=== PATIENT | female | born 1970 | race Caucasian/White ===

== ENCOUNTER 2016-06-26 10:12 | Emergency (ER) | payer BC ==
[2016-06-26] MEDS ORDERED: Sodium Chloride 0.9% 10 ML Syringe FLUSH PRN (10:19)
[2016-06-26 10:21] VITALS: BP 110/81
[2016-06-26] MEDS ORDERED: Ondansetron 4 MG/2 ML SDV IVPUSH ONE (10:34)
[2016-06-26] MEDS ORDERED: Famotidine 20 MG/2 ML SDV IVPUSH ONE (10:34)
[2016-06-26] MEDS ORDERED: HYDROmorphone 0.5 MG/0.5 ML Syringe IVPUSH ONE (10:34)
[2016-06-26] MEDS ORDERED: Sodium Chloride 0.9% 500 ML IV ONE (10:34)
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
--- NOTE | 2016-06-26 12:26 | US ---
Limited abdominal ultrasound: Multiple real-time images of the right upper abdomen were obtained. Comparison: No previous abdominal ultrasound, previous CT abdomen and pelvis exam of 05/15/16 is available. Findings: Liver shows no focal parenchymal abnormality. Gallbladder shows no gallstones. No gallbladder wall thickening or biliary duct dilatation is seen. Small parapelvic cyst is noted within the right kidney. Small nonobstructing stone is noted within the lower right kidney measuring 6 mm. Medullary portions of both kidneys appears somewhat echogenic possibly due to medullary sponge kidney. Pancreas appears within normal limits. Impression: 1. Echogenic medullary portions of the kidneys most likely due to medullary sponge kidney. Right kidney shows a small parapelvic cysts as well as nonobstructing lower pole calculus. 2. No additional abnormality is identified on right upper quadrant abdominal ultrasound. Diagnostic code #2
[2016-06-26] MEDS ORDERED: Metoclopramide 10 MG/2 ML SDV IVPUSH ONE (13:45)
== END 2016-06-26 14:21 | disposition home or self-care (01) ==
LOC: JD.ED 10:12 → SUPCPDRO 10:12 → JD.ED 14:21
DX: R10.11 Right upper quadrant pain (principal); I10 Essential (primary) hypertension; K21.9 Gastro-esophageal reflux disease without esophagitis; F41.9 Anxiety disorder, unspecified; F32.9 Major depressive disorder, single episode, unspecified; E11.9 Type 2 diabetes mellitus without complications; Z88.5 Allergy status to narcotic agent; Z91.040 Latex allergy status
CPT/HCPCS: 36415; 76705; 80053; 83690; 84484; 86140; 93005; 96361; 96374; 96375; 99285; J1170; J2405; J2765; J7040; J7050

== ENCOUNTER 2016-06-30 16:36 | Emergency (ER) | payer BC ==
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
[2016-06-30] MEDS ORDERED: HYDROmorphone 0.5 MG/0.5 ML Syringe IVPUSH ONE ×2 (17:16→19:34)
[2016-06-30] MEDS ORDERED: Metoclopramide 10 MG/2 ML SDV IVPUSH ONE (17:16)
[2016-06-30] MEDS ORDERED: Dextrose 5%-0.9% NaCl 1,000 ML IV SCH (17:30)
--- NOTE | 2016-06-30 19:21 | CT ---
CT abdomen and pelvis Technique: Multiple axial sections were obtained from above the dome of diaphragm inferiorly through the pubic symphysis. Oral contrast has been given. Intravenous contrast not utilized. Delayed images were also obtained through the upper abdomen. Comparison: Previous abdominal x-ray performed earlier on the same day. Previous CT abdomen and pelvis exam of 05/15/16 is also available. Findings: Visualized lung bases shows nothing acute. Noncontrast appearance of the liver appears within normal limits. Spleen also appears within normal limits. Adrenal glands show no nodule. Vague calcifications are seen within the renal pyramids of both kidneys as well as several small nonobstructing calculi. Findings are consistent with previous ultrasound of 06/26/16 suggesting medullary sponge kidney. No ureteral dilatation is seen. Previous gastric surgery is seen. Contrast is identified within the jejunum. No stomach dilatation is seen of contrast. No bowel dilatation seen within the small bowel or within the colon. Scattered stool and air is seen within the colon which appears within normal limits. Pancreas appears within normal limits. Aorta shows no aneurysmal dilatation. No retroperitoneal adenopathy or mesenteric abnormalities are seen. No pelvic mass or adenopathy is identified. Bone window settings were reviewed which appear within normal limits for the patient's age. Multiple surgical clips are seen within the right abdomen. Etiology for the surgical clips are not appreciated on this exam. Impression: 1. Previous abdominal surgery as noted above. 2. Stomach does not appear dilated. Contrast is identified within jejunum. 3. Findings compatible with medullary sponge kidney as suggested on abdominal ultrasound of 06/26/16. 4. Nothing acute identified on CT study of the abdomen and pelvis. Diagnostic code #2
[2016-06-30] MEDS ORDERED: Ondansetron 4 MG/2 ML SDV IVPUSH ONE (19:34)
[2016-06-30 20:02] VITALS: BP 111/83
--- NOTE | 2016-07-03 07:14 | CR ---
Abdomen: Supine view of the abdomen was obtained. Comparison: No previous abdominal x-ray Bowel gas noted within colon which appears within normal limits. Calcification seen within the left pelvis compatible with phleboliths. Surgical clips seen within the right lower abdomen as well as gastric surgery. Bony structures are unremarkable. Impression: 1. Incidental findings. Diagnostic code #2
== END 2016-06-30 20:00 ==
LOC: JD.ED 16:36
DX: K31.1 Adult hypertrophic pyloric stenosis (principal); I10 Essential (primary) hypertension; K21.9 Gastro-esophageal reflux disease without esophagitis; F41.8 Other specified anxiety disorders; E11.9 Type 2 diabetes mellitus without complications; Z85.820 Personal history of malignant melanoma of skin; Z90.49 Acquired absence of other specified parts of digestive tract; Z98.890 Other specified postprocedural states; Z87.891 Personal history of nicotine dependence; Z79.899 Other long term (current) drug therapy; Z88.5 Allergy status to narcotic agent; Z91.040 Latex allergy status
CPT/HCPCS: 36415; 74000; 74176; 80053; 81001; 82009; 83690; 84703; 85025; 96361; 96374; 96375; 99285; J1170; J2405; J2765; J7042

== ENCOUNTER 2017-03-09 14:18 | Emergency (ER) | payer BC ==
[2017-03-09 14:31] VITALS: BP 146/83
[2017-03-09] MEDS ORDERED: Sodium Chloride 0.9% 10 ML Syringe FLUSH PRN (14:49)
[2017-03-09] MEDS ORDERED: HYDROmorphone 1 MG/ML Syringe IVPUSH ONE (14:51)
[2017-03-09] MEDS ORDERED: Metoclopramide 10 MG/2 ML SDV IVPUSH ONE (14:51)
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
[2017-03-09] MEDS ORDERED: Sodium Chloride 0.9% 1,000 ML IV ONE (14:54)
[2017-03-09] MEDS ORDERED: Diatrizoate Meglumine/Diatrizoate Sodium 37% 120 ML Bottle PO ONE (15:16)
--- NOTE | 2017-03-09 16:20 | CT ---
CT abdomen and pelvis Technique: Multiple axial sections were obtained from above the dome of the diaphragm inferiorly through the pubic symphysis. Intravenous contrast not utilized. Oral contrast has been given. Comparison: Previous CT abdomen and pelvis exam of 06/30/16. Small portion of the visualized lung bases are clear. Liver and spleen shows no focal parenchymal abnormality. Adrenal gland on the left side shows slight fullness which is stable from prior exam and is likely incidental. Calcifications are seen within the renal pyramids as well as small nonobstructing stone within the inferior right kidney. No hydronephrosis is seen of either kidney. No ureteral calculi are seen. Pancreas is within normal limits. Surgical clips are seen from prior cholecystectomy. Aorta shows no aneurysmal dilatation. No retroperitoneal adenopathy is seen. Multiple surgical clips are seen within the right lower abdomen. Appendix not visualized. No pelvic mass or adenopathy is seen. No free fluid or inflammatory change is seen. Bone window settings were reviewed which appear within normal limits for the patient's age. Impression: 1. Findings compatible with medullary sponge kidney. Small nonobstructing stone within the inferior right kidney. These findings are stable from prior exam. 2. Slight fullness of the left adrenal gland which is stable and felt to be incidental. 3. Other incidental findings. Nothing acute is appreciated. Diagnostic code #2
[2017-03-09] MEDS ORDERED: Ondansetron 4 MG/2 ML SDV IVPUSH ONE (16:26)
[2017-03-09] MEDS ORDERED: Ondansetron 4 MG/2 ML SDV ONE (16:28)
== END 2017-03-09 17:26 | disposition home or self-care (01) ==
LOC: JD.ED 14:18
DX: R11.2 Nausea with vomiting, unspecified (principal); I10 Essential (primary) hypertension; E11.9 Type 2 diabetes mellitus without complications; Z88.5 Allergy status to narcotic agent; Z91.040 Latex allergy status; Z79.899 Other long term (current) drug therapy
CPT/HCPCS: 36415; 74176; 80053; 81025; 83690; 85025; 96361; 96374; 96375; 99284; J1170; J2405; J2765; J7040; J7050; Q9963; 99285

== ENCOUNTER 2018-08-26 21:17 | Emergency (ER) | payer BC ==
[2018-08-26 21:31] VITALS: BP 154/105
[2018-08-26] MEDS ORDERED: Ondansetron 4 MG/2 ML SDV IVPUSH ONE (22:06)
[2018-08-26] MEDS ORDERED: Sodium Chloride 0.9% 10 ML Syringe FLUSH PRN (22:06)
[2018-08-26] MEDS ORDERED: Sodium Chloride 0.9% 1,000 ML IV SCH (22:15)
[2018-08-26] MEDS ORDERED: HYDROmorphone 0.5 MG/0.5 ML Syringe IVPUSH STA (22:18)
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
[2018-08-26] MEDS ORDERED: HYDROmorphone 0.5 MG/0.5 ML Syringe IVPUSH ONE (23:35)
[2018-08-26] MEDS ORDERED: HYDROmorphone 0.5 MG/0.5 ML Syringe ONE (23:36)
[2018-08-27] MEDS ORDERED: Nitrofurantoin Monohydrate/Macrocrystalline 100 MG Cap PO ONE (00:25)
== END 2018-08-27 00:48 | disposition home or self-care (01) ==
LOC: JD.ED 21:17
DX: N30.90 Cystitis, unspecified without hematuria (principal)
CPT/HCPCS: 36415; 80053; 81001; 85007; 85027; 86140; 87086; 96361; 96374; 96375; 96376; 99284; J1170; J2405; J7040

== ENCOUNTER 2018-08-29 10:28 | Emergency (ER) | payer BC ==
[2018-08-29 10:54] VITALS: BP 144/96
[2018-08-29] MEDS ORDERED: Sodium Chloride 0.9% 1,000 ML IV ONE (11:27)
[2018-08-29] MEDS ORDERED: Ondansetron 4 MG/2 ML SDV IVPUSH ONE (11:27)
[2018-08-29] MEDS ORDERED: Ketorolac 30 MG/ML SDV IVPUSH ONE (11:28)
--- NOTE | 2018-08-29 12:36 | CT ---
CT abdomen and pelvis Technique: Multiple axial sections were obtained from the top of the liver inferiorly through the pubic symphysis. Intravenous and oral contrast not utilized. Study has been performed as a renal stone protocol. Findings: Calcifications are seen within the renal pyramids on both sides compatible with medullary sponge kidney. Nonobstructing calculus is noted within the lower right kidney measuring 5.5 mm. No ureteral dilatation or ureteral stone is seen. Visualized lung bases show nothing acute. Noncontrast appearance of the liver shows no discrete abnormality. Spleen appears within normal limits. Previous stomach surgery is noted. Adrenal glands show no nodule. Pancreas shows no discrete abnormality. Prior cholecystectomy is noted. Aorta shows no aneurysm. No retroperitoneal adenopathy is seen. Appendix not visualized. Evidence of prior right lower quadrant abdominal surgery. No pelvic mass or adenopathy is seen. No free fluid or inflammatory change is seen. Bone window settings were reviewed which appear within normal limits for the patient's age. Impression: 1. Findings compatible with medullary sponge kidney. Nonobstructing 5.5 mm stone within the lower right kidney. No ureteral dilatation or ureteral stone is seen. 2. Other incidental findings as noted above. Nothing acute is appreciated on noncontrast CT study of the abdomen and pelvis. Diagnostic code #2
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
[2018-08-29] MEDS ORDERED: Hyoscyamine 0.125 MG Tab.SL SL ONE (13:07)
[2018-08-29] MEDS ORDERED: Magnesium Citrate Solution 296 ML Bottle PO ONE (13:16)
== END 2018-08-29 13:40 | disposition home or self-care (01) ==
LOC: JD.ED 10:28
DX: K59.00 Constipation, unspecified (principal); I10 Essential (primary) hypertension; K21.9 Gastro-esophageal reflux disease without esophagitis; F41.9 Anxiety disorder, unspecified; F32.9 Major depressive disorder, single episode, unspecified; E11.9 Type 2 diabetes mellitus without complications; Z79.899 Other long term (current) drug therapy; Z88.5 Allergy status to narcotic agent; Z91.030 Bee allergy status
CPT/HCPCS: 36415; 74176; 80053; 81001; 85025; 86140; 87086; 96361; 96374; 96375; 99284; A9270; J1885; J2405; J7040

== ENCOUNTER 2019-09-21 20:41 | Emergency (ER) | payer BC ==
[2019-09-21 21:03] VITALS: BP 133/79; PULSE 91
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
[2019-09-21] MEDS ORDERED: Ondansetron 4 MG/2 ML SDV IVPUSH ONE (21:32)
[2019-09-21] MEDS ORDERED: diphenhydrAMINE 50 MG/ML SDV IVPUSH ONE (21:32)
[2019-09-21] MEDS ORDERED: Lactated Ringers 1,000 ML IV ONE (21:32)
[2019-09-21] MEDS ORDERED: Potassium Chloride 20 MEQ Tab.ER PO ONE (22:51)
--- NOTE | 2019-09-22 06:58 | CT ---
Head CT Technique: Multiple axial sections through the brain were obtained. Intravenous contrast was not utilized. Comparison: Prior head CT study of 05/15/16. Findings: Ventricles along with basal cisterns and sulci over the convexities are within normal limits for the patient's age. No abnormal parenchymal densities are seen. No evidence of intracranial hemorrhage. No midline shift or mass-effect is seen. Bone window settings were reviewed. No acute calvarial finding is seen. Visualized mastoid sinuses and visualized paranasal sinuses are clear. Impression: 1. Nothing acute is appreciated on noncontrast head CT exam. Diagnostic code #1 This report was dictated in MDT I agree with preliminary report from [email or web address], finalized on 09/21/19, 10:23 PM Central Daylight Time
== END 2019-09-21 23:20 | disposition home or self-care (01) ==
LOC: JD.ED 20:41
DX: G43.909 Migraine, unspecified, not intractable, without status migrainosus (principal); S30.1XXA Contusion of abdominal wall, initial encounter; I10 Essential (primary) hypertension; K21.9 Gastro-esophageal reflux disease without esophagitis; E11.9 Type 2 diabetes mellitus without complications; Z88.5 Allergy status to narcotic agent; Z91.010 Allergy to peanuts; Z79.899 Other long term (current) drug therapy; X58.XXXA Exposure to other specified factors, initial encounter
CPT/HCPCS: 36415; 70450; 80053; 82962; 85025; 85610; 85730; 93005; 96361; 96374; 96375; 99284; A9270; J1200; J2405; J7120; 93010

== ENCOUNTER 2019-09-23 19:50 | Emergency (ER) | payer BC ==
[2019-09-23 20:03] VITALS: BP 148/89; PULSE 90
[2019-09-23] MEDS ORDERED: Ondansetron 4 MG/2 ML SDV IVPUSH ONE (20:41)
[2019-09-23] MEDS ORDERED: diphenhydrAMINE 50 MG/ML SDV IVPUSH ONE (20:42)
[2019-09-23] MEDS ORDERED: Sodium Chloride 0.9% 1,000 ML IV SCH (20:45)
[2019-09-23] MEDS: Sodium Chloride 0.9% 10 ML Syringe FLUSH PRN ×2 (20:54→21:49)
[2019-09-23] MEDS ORDERED: Sodium Chloride 0.9% 10 ML Syringe FLUSH PRN (21:00)
[2019-09-23] MEDS ORDERED: Iopamidol 612 MG/ML 100 ML Bottle IVPUSH ONE (21:00)
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
[2019-09-23] MEDS ORDERED: LORazepam 2 MG/ML SDV IVPUSH ONE (22:03)
--- NOTE | 2019-09-24 06:51 | CT ---
CT abdomen and pelvis Technique: Multiple axial sections were obtained from below the dome of the diaphragm inferiorly through the pubic symphysis. Intravenous contrast was utilized. Delayed images were obtained through the bladder. Comparison: Prior CT abdomen and pelvis exam of 08/29/18. Findings: Visualized lung bases show nothing acute. Visualized liver shows no focal abnormality. Spleen appears within normal limits. Surgical clips are seen from prior cholecystectomy. Prior gastric surgery is noted. Adrenal glands show no nodule. Small nonobstructing calculus is noted within the lower right kidney measuring about 4 mm. Kidneys otherwise appear within normal limits. Pancreas appears within normal limits. Aorta shows atherosclerotic change without aneurysm. No retroperitoneal adenopathy or mesenteric abnormalities are seen. Soft tissue nodule noted within the right anterolateral pelvis within the subcutaneous fat possibly due to change from subcutaneous injection. Similar but smaller finding is seen on the left side. Cyst is noted within the left ovary measuring 3.0 cm. No additional pelvic abnormality is seen. Surgical clips seen within the right lower abdomen. Appendix not visualized. Delayed images shows contrast excretion into both ureters as well as contrast within the bladder. Bone window settings were reviewed which appear within normal limits for the patient's age. No acute osseous finding is seen. Impression: 1. 3.0 cm cyst within the left ovary. 2. Small nonobstructing calculus within the lower right kidney. 3. Other findings as noted above believed to be incidental. Nothing acute is appreciated. Diagnostic code #2 This report was dictated in MDT I agree with preliminary report from [facility], finalized on 09/23/19, 10:44 PM Central Daylight Time, grade 1
== END 2019-09-23 22:56 | disposition home or self-care (01) ==
LOC: JD.ED 19:50
DX: G43.909 Migraine, unspecified, not intractable, without status migrainosus (principal); R10.30 Lower abdominal pain, unspecified; I10 Essential (primary) hypertension; K21.9 Gastro-esophageal reflux disease without esophagitis; E11.9 Type 2 diabetes mellitus without complications; F41.9 Anxiety disorder, unspecified; F32.9 Major depressive disorder, single episode, unspecified; Z88.5 Allergy status to narcotic agent; Z91.040 Latex allergy status; Z79.899 Other long term (current) drug therapy
CPT/HCPCS: 36415; 51798; 74177; 80053; 81001; 85025; 96361; 96374; 96375; 99284; J1200; J2060; J2405; J7030; Q9967; 99283

== ENCOUNTER 2019-10-23 18:53 | Emergency (ER) | payer BC ==
[2019-10-23 19:28] VITALS: BP 134/94; PULSE 101
[2019-10-23] MEDS ORDERED: Ondansetron 4 MG/2 ML SDV IVPUSH ONE (20:13)
[2019-10-23] MEDS ORDERED: Sodium Chloride 0.9% 1,000 ML IV SCH (20:15)
--- NOTE | 2019-10-23 20:15 | EDM.PDOC ---
ED HPI GENERAL MEDICAL PROBLEM - General Chief Complaint: Abdominal Pain Stated Complaint: RECENT HYSTERECTOMY BACK PAIN AND ABDOMINAL PAIN Time Seen by Provider: 10/23/19 19:37 Source of Information: Reports: Patient History Limitations: Reports: No Limitations - History of Present Illness INITIAL COMMENTS - FREE TEXT/NARRATIVE: Mrs. Mederos is a pleasant 49-year-old woman with a past medical history significant for GERD, treated with pantoprazole, and obesity, status post a laparoscopic sleeve gastrectomy that developed complications and was subsequently converted to a gastric bypass, who now presents the ED stating that she has been experiencing progressively worsening epigastric burning and bloating abdominal pain since Sunday or of last week, 07/15/2019 or 07/16/2019. She experienced nausea and vomiting on Sunday, Sunday, and Sunday, 10/19/2019 - 10/21/2019, and has had watery diarrhea since 10/19/2019. She also reports chills for the past 2 days. She denies having any urinary symptoms. She also reports that she developed bilateral back pain in early September, about 2 weeks after she underwent a complete hysterectomy on 09/18/2019. Her back pain has progressively been getting worse. She states that she has not had a medical evaluation for it. The patient states that she went to the walk-in clinic today, but was sent here. She states that no tests were performed. Here in the ED, the patient's initial BP is found to be slightly elevated at 134/94, with a tachycardia of 101 bpm, otherwise, she is afebrile, saturating 100% on room air. Other than her gastrointestinal symptoms, chills, and back pain, the patient denies recent fever, sore throat, ear pain, nasal or sinus congestion, cough, dyspnea, chest pain, palpitations, constipation, urinary symptoms, recent weight gain or weight loss, recent bloody bowel movements or black bowel movements, recent joint aches, headaches, or rashes. The patient's PCP is TIFFANY Abel. Her Bariatric Surgeon is Dr. Billy Davidson. Her Stripper Preliminary is Dr. Lizy Le. Her Neurologist is Dr. Qasim Saucedo. Abdominal Pain Score (Numeric/FACES): 8 - Related Data Allergies Allergy/AdvReac Type Severity Reaction Status Date / Time codeine Allergy Rash Verified 09/23/19 20:03 latex Allergy Rash Verified 09/23/19 20:03 Home Meds: Home Meds PARoxetine HCL [Paroxetine HCl] 40 mg PO DAILY 01/12/16 [History] Pantoprazole Sodium 40 mg PO DAILY 01/12/16 [History] FA/Lycopene/Lut/MV,Ca,Iron,Min [Centrum] 1 tab PO DAILY 06/26/16 [History] Orphenadrine [Norflex] 1 tab PO Q12H PRN #14 tab.er 10/23/19 [Rx] Sucralfate [Carafate] 1 gm PO Q6HR PRN 10/23/19 [History] buPROPion HCL [Wellbutrin Xl] 1 tab PO DAILY 10/23/19 [History] Past Medical History HEENT History: Reports: Allergic Rhinitis, 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 Wears glasses and contacts) Gastrointestinal History: Reports: GERD, Hiatal Hernia : 4 Para: 1 Neurological History: Reports: Seizure (associated with heat stroke) Psychiatric History: Reports: Anxiety, Depression Oncologic (Cancer) History: Reports: Malignant Melanoma (s/p excision) - Infectious Disease History Infectious Disease History: Reports: Influenza, Mononucleosis - Past Surgical History HEENT Surgical History: Reports: Oral Surgery (wisdom teeth extraction) GI Surgical History: Reports: Appendectomy, Bariatric Procedure (Laparoscopic sleeve gastrectomy -> complications -> gastric bypass), Cholecystectomy (2018), EGD (x 6) Female Surgical History: Reports: Section (x 1), Hysterectomy (complete, 09/18/2019) Musculoskeletal Surgical History: Reports: Arthroscopic Knee (right) Oncologic Surgical History: Reports: Other (See Below) (Malignant melanoma excised from nose, followed by artificial skin graft) Social & Family History - Family History HEENT: Reports: Macular Degeneration Respiratory: Reports: Asthma GI: Reports: PUD OBGYN: Reports: None Neurological: Reports: Vertigo Oncologic: Reports: Bladder, Breast - Tobacco Use Smoking Status *Q: Never Smoker Second Hand Smoke Exposure: No - Caffeine Use Caffeine Use: Reports: Coffee - Alcohol Use Alcohol Use History: Yes Alcohol Use Frequency: Socially - Recreational Drug Use Recreational Drug Use: No - Living Situation & Occupation Living situation: Reports: , with Spouse 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 ED EXAM, GI/ABD - Physical Exam Exam: See Below Exam Limited By: No Limitations General Appearance: Alert, WD/WN, No Apparent Distress Eyes: Bilateral: Normal Appearance, EOMI Ears: Normal External Exam, Hearing Grossly Normal Nose: Normal Inspection Throat/Mouth: Normal Inspection, Normal Lips, Normal Voice, No Airway Compromise Head: Atraumatic, Normocephalic Neck: Normal Inspection, Full Range of Motion Respiratory/Chest: No Respiratory Distress, Lungs Clear, Normal Breath Sounds, No Accessory Muscle Use Cardiovascular: Normal Peripheral Pulses, Regular Rate, Rhythm, No Edema, No Gallop, No JVD, No Murmur, No Rub GI/Abdominal Exam: Normal Bowel Sounds, Soft, No Organomegaly, No Distention, No Abnormal Bruit, No Mass, Tender (Reproducible, to the epigastrium and left upper quadrant only, no tenderness elsewhere) (Female) Exam: Deferred Rectal (Female) Exam: Deferred Back Exam: Normal Inspection, Full Range of Motion, Muscle Spasm (bilateral lumbar paraspinous muscles). No: Vertebral Tenderness Extremities: Normal Inspection, Normal Range of Motion, No Pedal Edema, Normal Capillary Refill Neurological: Alert, Oriented, Normal Cognition, No Motor/Sensory Deficits Psychiatric: Normal Affect Skin Exam: Warm, Dry, Intact, Normal Color, No Rash Course - Vital Signs Last Recorded V/S: Last Vital Signs Temp 36.7 C 10/23/19 19:23 Pulse 101 H 10/23/19 19:23 Resp 16 10/23/19 19:23 BP 134/94 H 10/23/19 19:23 Pulse Ox 100 10/23/19 19:23 - Orders/Labs/Meds Orders: Active Orders 24 hr Category Date Time Status Bladder Scan [RC] ASDIRECTED Care 10/23/19 23:21 Active Orthostatic Vital Signs [RC] STAT Care 10/23/19 20:10 Active Abdomen Pelvis w Cont [CT] Stat Exams 10/23/19 20:09 Taken Labs: Laboratory Tests 10/23/19 10/23/19 Range/Units 20:20 20:20 WBC 3.70 L (3.98-10.04) K/mm3 RBC 4.07 (3.98-5.22) M/mm3 Hgb 11.8 (11.2-15.7) gm/dl Hct 37.4 (34.1-44.9) % MCV 91.9 (79.4-94.8) fl MCH 29.0 (25.6-32.2) pg MCHC 31.6 L (32.2-35.5) g/dl RDW Std Deviation 44.4 (36.4-46.3) fL Plt Count 277 D (182-369) K/mm3 MPV 8.6 L (9.4-12.3) fl Neutrophils % (Manual) 54 (40-60) % Band Neutrophils % 1 (0-10) % Lymphocytes % (Manual) 32 (20-40) % Atypical Lymphs % 0 % Monocytes % (Manual) 12 H (2-10) % Eosinophils % (Manual) 1 (0.7-5.8) % Basophils % (Manual) 0 L (0.1-1.2) Platelet Estimate Adequate Plt Morphology Comment Normal Hypochromasia 1+ slight RBC Morph Comment Not Reportable Sodium 138 (136-145) mEq/L Potassium 3.1 L (3.5-5.1) mEq/L Chloride 103 (98-107) mEq/L Carbon Dioxide 22 (21-32) mEq/L Anion Gap 16.1 H (5-15) BUN 14 (7-18) mg/dL Creatinine 1.0 (0.55-1.02) mg/dL Est Cr Clr Drug Dosing 55.01 mL/min Estimated GFR (MDRD) 59 (>60) mL/min BUN/Creatinine Ratio 14.0 (14-18) Glucose 81 (74-106) mg/dL Calcium 8.3 L (8.5-10.1) mg/dL Magnesium 1.7 L (1.8-2.4) mg/dl Total Bilirubin 0.2 (0.2-1.0) mg/dL AST 17 (15-37) U/L ALT 16 (14-59) U/L Alkaline Phosphatase 59 (46-116) U/L Total Protein 7.1 (6.4-8.2) g/dl Albumin 3.3 L (3.4-5.0) g/dl Globulin 3.8 gm/dL Albumin/Globulin Ratio 0.9 L (1-2) Lipase 83 (73-393) U/L Meds: Medications Discontinued Medications Generic Name Dose Route Start Last Admin Trade Name Freq PRN Reason Stop Dose Admin Diatrizoate Meglum/Diatrizoate Sod 40 ml 10/23/19 20:36 10/23/19 22:35 Gastrografin 37% PO 10/23/19 20:37 40 ml ONETIME ONE Administration Famotidine 40 mg 10/23/19 23:30 10/23/19 23:36 Pepcid PO 10/23/19 23:31 40 mg ONETIME STA Administration Sodium Chloride 1,000 mls @ 150 mls/hr 10/23/19 20:15 10/23/19 20:22 Normal Saline IV 150 mls/hr ASDIRECTED ANIL Administration Iopamidol 100 ml 10/23/19 20:36 10/23/19 22:35 Isovue-300 (61%) IVPUSH 10/23/19 20:37 100 ml ONETIME ONE Administration Loperamide HCl 4 mg 10/23/19 23:21 10/23/19 23:36 Imodium PO 10/23/19 23:22 4 mg ONETIME STA Administration Metoclopramide HCl 10 mg 10/23/19 21:35 10/23/19 21:38 Reglan IVPUSH 10/23/19 21:36 10 mg ONETIME STA Administration Ondansetron HCl 4 mg 10/23/19 20:13 10/23/19 20:22 Zofran IVPUSH 10/23/19 20:14 4 mg ONETIME ONE Administration Orphenadrine Citrate 100 mg 10/23/19 23:31 10/23/19 23:36 Norflex PO 10/23/19 23:32 100 mg ONETIME STA Administration Sodium Chloride 10 ml 10/23/19 20:36 Saline Flush FLUSH ONETIME PRN Keep Vein Open - Re-Assessments/Exams Free Text/Narrative Re-Assessment/Exam: 10/23/19 20:11 As above, the patient has been experiencing progressively worsening low back pain since early September, then developed epigastric pain about 1 week ago, then nausea, vomiting, and watery diarrhea this past Sunday. On physical exam, she has some reproducible tenderness to her epigastrium into her left upper quadrant, but is nontender elsewhere, and her abdomen is soft with normoactive bowel sounds. She has reproducible tenderness to palpation without percussion of her bilateral flanks, consistent with a muscle spasm. She also complains of vision changes and dizziness, although they are chronic and already being worked up by a Neurologist. For today's purposes, I have ordered a work-up that includes blood work, a CT scan of her abdomen and pelvis, a bladder scan, and orthostatics. In the meantime, the patient will be given IV fluid and IV Zofran. 10/23/19 22:55 The patient's CBC is remarkable for a WBC count low at 3.70, with the remainder of her CBC being unremarkable. Her CMP is remarkable for a potassium mildly low at 3.1, and an anion gap slightly elevated at 16.1, but with a bicarbonate normal at 22. The remainder of her CMP is unremarkable. Her magnesium level is slightly depressed at 1.7. Her lipase is within normal limits at 83. CT of the abdomen and pelvis with oral and IV contrast is read by Linsey as: 1. Small bowel enteritis suggested involving the mid to distal jejunal loops. 2. Previous appendectomy. 3. Mild fatty liver changes. 4. Previous partial gastrectomy and gastrojejunal anastomosis. 5. 4 mm nonobstructive lower pole right renal calculus. 6. Bilateral nonspecific ovarian cysts. 7. Previous hysterectomy. 8. No free fluid in the abdomen or pelvis. 9. Lung bases and pleural spaces are clear. 10. Small hiatal hernia. 10/23/19 23:20 Notified by Shannon CULP that the patient's bladder scan showed virtually no urine. 10/23/19 23:31 Test results discussed with the patient and her (now present). As above, minor's work-up is grossly unremarkable, with the exception of the finding of jejunal enteritis, however, I doubt that jejunal enteritis would cause epigastric pain or tenderness. I suggested to the patient that it is possible that the pantoprazole that she has been taking to treat her GERD has stopped working, which is fairly common. I suggested that she switch to a different PPI, and for the next few days, until the new PPI becomes effective, that she take an uyky-xnh-khsegrx H2 kika, such as famotidine. She can take loperamide for her diarrhea, and Norflex for her back pain. I can prescribe a 7-day course. The patient seemed skeptical that GERD could cause all of her symptoms. I explained that the work-up in the emergency department is intended to rule out a medical emergency, that is, an imminent threat to life or limb, and that we do not perform diagnostic work-ups in the emergency department. I reassured her, however, that no significant abnormalities were found on minor's work-up. If her symptoms fail to improve despite my treatment rec ommendations, she may require an EGD to further evaluate. The patient expressed understanding. Departure - Departure Time of Disposition: 23:34 Disposition: Home, Self-Care 01 Condition: Good Clinical Impression: Epigastric abdominal pain of unknown etiology, Diarrhea - Discharge Information *PRESCRIPTION DRUG MONITORING PROGRAM REVIEWED*: Not Applicable *COPY OF PRESCRIPTION DRUG MONITORING REPORT IN PATIENT SUMMER: Not Applicable Prescriptions: Orphenadrine [Norflex] 1 tab PO Q12H PRN #14 tab.er PRN Reason: Muscle Spasm Instructions: Abdominal Pain, Adult, [id number], Diarrhea, Adult, [id number] Referrals: Flavia Foote PA-C [Ordering Only Provider] - Qasim Saucedo MD [Ordering Only Provider] - Lizy Le MD [Ordering Only Provider] - Billy Davidson MD [Ordering Only Provider] - Forms: ED Department Discharge Additional Instructions: You were seen in the emergency room for progressively worsening upper central abdominal burning and bloating since Sunday or of last week, along with watery diarrhea since Sunday, and nausea on Sunday, Sunday, and Sunday. Work-up in the ER included blood work, a bladder scan, and a CT scan of your abdomen and pelvis with oral and IV contrast. 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 The cause of your symptoms is not known. Jejunal enteritis would not likely cause your symptoms, however, it may be that your pantoprazole has stopped working, causing your GERD to flare up. We recommend that you switch to a different proton pump inhibitor, and take it as directed on the label. As discussed, proton pump inhibitors typically take about 3 days before they become effective. During that time, we recommend that you take an [id number]-emd-lhrfldh H2 kika, such as famotidine (Pepcid). We recommend that you take 1 tablet twice a day, and generic famotidine is just as good as the brand name Pepcid. For your diarrhea, we recommend that you take aomr-owm-gsheotj loperamide (Imodium), 1 tablet (2 mg) after each loose bowel movement, to a maximum of 8 tablets (16 mg) within a 24-hour period. Stay adequately hydrated. Gatorade or Powerade are best. We recommend that you avoid juice and milk, as they may worsen diarrhea. For your back pain, you have been started on the muscle relaxant Norflex, and a prescription for Norflex has been sent to the [place] [facility] located in the [facility] store. Take 1 tablet of Norflex every 12 hours, starting tomorrow morning, 10/24/2019, as prescribed. If this medicine works well for you, talk to your PCP, TIFFANY Abel, about getting an additional prescription. If any other problems, including worsening of your symptoms, please do not hesitate to return to the ER. Sepsis Event Note (ED) - Evaluation Sepsis Screening Result: No Definite Risk - Focused Exam Vital Signs: Vital Signs Temp Pulse Resp BP Pulse Ox 10/23/19 19:23 36.7 C 101 H 16 134/94 H 100 - My Orders Last 24 Hours: My Active Orders 10/23/19 20:09 Abdomen Pelvis w Cont [CT] Stat 10/23/19 20:10 Orthostatic Vital Signs [RC] STAT 10/23/19 23:21 Bladder Scan [RC] ASDIRECTED - Assessment/Plan Last 24 Hours: My Active Orders 10/23/19 20:09 Abdomen Pelvis w Cont [CT] Stat 10/23/19 20:10 Orthostatic Vital Signs [RC] STAT 10/23/19 23:21 Bladder Scan [RC] ASDIRECTED
[2019-10-23] MEDS ORDERED: Sodium Chloride 0.9% 10 ML Syringe FLUSH PRN (20:36)
[2019-10-23] MEDS ORDERED: Iopamidol 612 MG/ML 100 ML Bottle IVPUSH ONE (20:36)
[2019-10-23] MEDS ORDERED: Diatrizoate Meglumine/Diatrizoate Sodium 37% 120 ML Bottle PO ONE (20:36)
[2019-10-23] MEDS ORDERED: Metoclopramide 10 MG/2 ML SDV IVPUSH STA (21:35)
[2019-10-23] MEDS ORDERED: Loperamide 2 MG Cap PO STA (23:21)
[2019-10-23] MEDS ORDERED: Famotidine 20 MG Tab PO STA (23:30)
[2019-10-23] MEDS ORDERED: Orphenadrine 100 MG Tab.ER PO STA (23:31)
--- NOTE | 2019-10-24 07:49 | CT ---
CT abdomen and pelvis Technique: Multiple axial sections were obtained from above the dome of the diaphragm inferiorly through the pubic symphysis. Intravenous and oral contrast was utilized. Delayed images were obtained through the bladder. Comparison: Prior CT abdomen and pelvis exam of 03/09/17 Findings: Visualized lung bases show nothing acute. Liver contains no focal parenchymal abnormality. Contrast is noted within the esophagus compatible with gastroesophageal reflux. Prior gastric surgery is noted. Spleen appears within normal limits. Surgical clips are seen from prior cholecystectomy. Adrenal glands show no abnormality. Pancreas appears normal. Kidneys show symmetric contrast enhancement without hydronephrosis. Small cortical lesion is noted within the right kidney compatible with minimal cortical cyst. There is a small nonobstructing calculus within the lower pole of the right kidney measuring about 4-5 mm in size. Aorta shows mild atherosclerotic calcification without aneurysm. No retroperitoneal adenopathy is seen. Appendix is not visualized with surgical clips seen off the tip of the spleen presumably from prior cholecystectomy. Bowel wall thickening seen within small bowel within the pelvis compatible with mild enteritis. No pelvic mass or adenopathy is seen. Both ovaries show evidence of follicles which is felt to be within normal limits. Delayed images shows contrast within the bladder. Impression: 1. Multiple small bowel loops within the pelvis showing bowel wall thickening compatible with enteritis. 2. Other nonacute findings as described above. Diagnostic code #3 This report was dictated in MDT I agree with preliminary report from julia, finalized on 10/23/19, 11:49 PM Central Daylight Time
== END 2019-10-23 23:55 | disposition home or self-care (01) ==
LOC: JD.ED 18:53
DX: R10.13 Epigastric pain (principal); R19.7 Diarrhea, unspecified; K21.9 Gastro-esophageal reflux disease without esophagitis; F41.9 Anxiety disorder, unspecified; F32.9 Major depressive disorder, single episode, unspecified; Z88.5 Allergy status to narcotic agent; Z91.040 Latex allergy status; Z79.899 Other long term (current) drug therapy
CPT/HCPCS: 36415; 51798; 74177; 80053; 83690; 83735; 85007; 85027; 96361; 96374; 96375; 99284; A9270; J2405; J2765; J7030; Q9963; Q9967

== ENCOUNTER 2020-07-31 11:47 | Emergency (ER) | payer BC ==
[2020-07-31] MEDS ORDERED: Ketorolac 30 MG/ML SDV IM ONE (12:29)
[2020-07-31] MEDS ORDERED: Ondansetron 4 MG Tab.DIS PO ONE (12:29)
[2020-07-31] MEDS ORDERED: Dexamethasone 4 MG Tab PO ONE (12:30)
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
[2020-07-31] MEDS ORDERED: HYDROmorphone 0.5 MG/0.5 ML Syringe IM ONE (14:04)
[2020-07-31 14:57] VITALS: BP 121/75; PULSE 63
--- NOTE | 2020-08-01 11:12 | CR ---
Chest: Portable view of the chest was obtained. Comparison: Prior chest x-ray of 09/05/12. Heart size and mediastinum are normal. Minimal increased density within the left lung base is seen. Lungs otherwise are clear. Bony structures are unremarkable. Prior cholecystectomy is noted. Impression: 1. Prior cholecystectomy. 2. Slight increased density within the left lung base compatible with minimal pneumonia. Diagnostic code #3
== END 2020-07-31 14:55 | disposition home or self-care (01) ==
LOC: JD.ED 11:47
DX: U07.1 COVID-19 (principal); I10 Essential (primary) hypertension; K21.9 Gastro-esophageal reflux disease without esophagitis; Z88.5 Allergy status to narcotic agent; Z91.040 Latex allergy status
CPT/HCPCS: 36415; 71045; 80053; 85025; 86140; 96372; 99284; A9270; J1170; J1885; J8540; 99283

== ENCOUNTER 2020-08-05 13:20 | Inpatient (IN) | payer BC ==
[2020-08-05] MEDS ORDERED: Sodium Chloride 0.9% 10 ML Syringe FLUSH PRN (13:47)
--- NOTE | 2020-08-05 13:48 | EDM.PDOC ---
ED HPI GENERAL MEDICAL PROBLEM - General Chief Complaint: General Stated Complaint: [facility] Time Seen by Provider: 08/05/20 13:43 Source of Information: Reports: Patient, RN Notes Reviewed History Limitations: Reports: No Limitations - History of Present Illness INITIAL COMMENTS - FREE TEXT/NARRATIVE: Patient is a 50-year-old female who presents to the ER via [facility] for her ongoing COVID-19 symptoms. Patient was diagnosed with COVID-19 roughly 1 week ago. She was seen in this ER on 07/31/2020 by myself, had a chest x-ray some basic labs, and was given a course of oral steroids for outpatient management. Patient called the ambulance today or had her called ambulance today, as when he came back from [facility], he states that he fo und her on the couch, breathing but somewhat unresponsive. Patient is complaining today of feeling increasingly more fatigued, unable to move off the couch, she has been taking her steroid, but does not seem to be doing much else for her. She developed a rash to her upper forearms and body a day or 2 ago, and is complaining of being hot with cold flashes, she has a headache, back pain, and a sore throat. She was given 50 mg IM Benadryl by the ambulance staff. Patient does note she has a history of multiple sclerosis, where she loses her vision at times, states that she has been having issues with vision loss for the last few days, but she has a medication she takes for this and it seems to be helping. 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 Primary care provider is Flavia Foote, she notes that they did call her for guidance today, and she suggest that maybe they go to [facility] for further management. Patient states that she is not been able to keep much down for food or fluids as she has had too much nausea. She was given a course of Zofran as well for her nausea but states she has not taken anything like that today. She is not complaining of any blurred vision or double vision at this time. Patient states that the rash feels like a sunburn. 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 Headache Pain Score (Numeric/FACES): 9 Throat Pain Score (Numeric/FACES): 7 Back Pain Score (Numeric/FACES): 9 - Related Data Allergies Allergy/AdvReac Type Severity Reaction Status Date / Time codeine Allergy Rash Verified 08/05/20 13:42 latex Allergy Rash Verified 08/05/20 13:42 Home Meds: Home Meds PARoxetine HCL [Paroxetine HCl] 40 mg PO DAILY 01/12/16 [History] Pantoprazole Sodium 40 mg PO DAILY 01/12/16 [History] FA/Lycopene/Lut/MV,Ca,Iron,Min [Centrum] 1 tab PO DAILY 06/26/16 [History] Ondansetron [Zofran ODT] 4 mg PO Q8H PRN #15 tab.dis 07/31/20 [Rx] dexAMETHasone [Decadron] 6 mg PO DAILY 10 Days #10 tablet 07/31/20 [Rx] Past Medical History - Past Health History Medical/Surgical History: Denies Medical/Surgical History HEENT History: Reports: Allergic Rhinitis, Impaired Vision Other HEENT History: wears glasses and contacts Cardiovascular History: Reports: Hypertension Respiratory History: Reports: Other (See Below) Other Respiratory History: seasonal allergies Gastrointestinal History: Reports: GERD, Hiatal Hernia QUILLER HAND History: Reports: Other QUILLER HAND History: Neurological History: Reports: Seizure Other Neuro History: triggered by heat stroke, occurred 6 years ago Psychiatric History: Reports: Anxiety, Depression Endocrine/Metabolic History: Reports: Diabetes, Type II Oncologic (Cancer) History: Reports: Malignant Melanoma Dermatologic History: Reports: Melanoma - Infectious Disease History Infectious Disease History: Reports: Influenza, Mononucleosis, Novel Coronavirus (07/27/2020) - Past Surgical History HEENT Surgical History: Reports: Oral Surgery Other HEENT Surgeries/Procedures: cancer on skin of face around nose Cardiovascular Surgical History: Reports: None GI Surgical History: Reports: Appendectomy, Bariatric Procedure, Cholecystectomy, EGD Other GI Surgeries/Procedures: SLEEVE procedure Female Surgical History: Reports: Section, Hysterectomy Endocrine Surgical History: Reports: None Neurological Surgical History: Reports: None Musculoskeletal Surgical History: Reports: Arthroscopic Knee Oncologic Surgical History: Reports: Other (See Below) Dermatological Surgical History: Reports: Skin Graft Social & Family History - Family History HEENT: Reports: Macular Degeneration Respiratory: Reports: Asthma GI: Reports: PUD OBGYN: Reports: None Neurological: Reports: Vertigo Oncologic: Reports: Bladder, Breast - Tobacco Use Tobacco Use Status *Q: Never Tobacco User - Caffeine Use Caffeine Use: Reports: Coffee - Recreational Drug Use Recreational Drug Use: No - Living Situation & Occupation Living situation: Reports: , with Spouse 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 ED EXAM, GENERAL - Physical Exam Exam: See Below Exam Limited By: No Limitations General Appearance: Alert, WD/WN, No Apparent Distress (pt is somewhat dramatic) Respiratory/Chest: No Respiratory Distress, Lungs Clear, Normal Breath Sounds, No Accessory Muscle Use, Chest Non-Tender Cardiovascular: Normal Peripheral Pulses, Regular Rate, Rhythm, No Edema Peripheral Pulses: 2+: Radial (L), Radial (R) GI/Abdominal: Normal Bowel Sounds, Soft, Non-Tender, No Distention, No Mass Extremities: Normal Range of Motion, Normal Capillary Refill Neurological: Alert, Oriented, Normal Cognition, No Motor/Sensory Deficits Psychiatric: Normal Affect, Normal Mood Skin Exam: Warm, Dry, Intact, Normal Color, Rash (Erythema noted to bilateral upper arms, and onto her chest. This does have the appearance of a sunburn in nature. Patient states that the rash feels like a sunburn however she has not been in the sun.) #1 Interpretation EKG Date: 08/05/20 Time: 14:12 Rhythm: NSR Rate (Beats/Min): 76 Lerona: LAD-Left Lerona Deviation (-20 ) P-Wave: Present QRS: Normal ST-T: Normal QT: Normal EKG Interpretation Comments: No obvious ischemia or acute ST changes noted, reviewed by myself and Dr. Dickey. He did appreciate a near Q-wave in leads III and aVF, consider old inferior wall PA. Course - Vital Signs Last Recorded V/S: Last Vital Signs Temp 97.6 F 08/05/20 13:30 Pulse 87 08/05/20 13:30 Resp 18 08/05/20 13:30 BP 136/97 H 08/05/20 13:30 Pulse Ox 98 08/05/20 13:30 - Orders/Labs/Meds Orders: Active Orders 24 hr Category Date Time Status EKG Documentation Completion [RC] STAT Care 08/05/20 13:47 Active Peripheral IV Care [RC] . DIRECTED Care 08/05/20 13:48 Active REFLEX LACTIC ACID YES OR NO [CHEM] Routine Lab 08/05/20 14:13 Received Potassium Chloride [KCl in Water 10 MEQ/100 ML] 10 meq Med 08/05/20 14:30 Active Premix Bag 1 bag IV Q1H Sodium Chloride 0.9% [Saline Flush] Med 08/05/20 13:47 Active 10 ml FLUSH ASDIRECTED PRN Peripheral IV Insertion Adult [OM.PC] Routine Oth 08/05/20 13:48 Ordered Medication Orders Potassium Chloride 10 meq/ (Premix) 100 mls @ 100 mls/hr IV Q1H ANIL Stop: 08/05/20 18:29 Last Admin: 08/05/20 15:17 Dose: 100 mls/hr Documented by: JIMMIE Sodium Chloride (Sodium Chloride 0.9% 10 Ml Syringe) 10 ml FLUSH ASDIRECTED PRN PRN Reason: Keep Vein Open Last Admin: 08/05/20 15:14 Dose: 10 ml Documented by: JIMMIE Labs: Laboratory Tests 08/05/20 08/05/20 08/05/20 Range/Units 13:28 13:28 13:28 WBC 7.21 (3.98-10.04) K/mm3 RBC 5.10 (3.98-5.22) M/mm3 Hgb 13.0 D (11.2-15.7) gm/dl Hct 42.1 (34.1-44.9) % MCV 82.5 (79.4-94.8) fl MCH 25.5 L (25.6-32.2) pg MCHC 30.9 L (32.2-35.5) g/dl RDW Std Deviation 49.0 H (36.4-46.3) fL Plt Count 368 D (182-369) K/mm3 MPV 9.2 L (9.4-12.3) fl Neutrophils % (Manual) 85 H (40-60) % Band Neutrophils % 0 (0-10) % Lymphocytes % (Manual) 9 L (20-40) % Atypical Lymphs % 0 % Monocytes % (Manual) 2 (2-10) % Eosinophils % (Manual) 4 (0.7-5.8) % Basophils % (Manual) 0 L (0.1-1.2) Platelet Estimate Adequate Plt Morphology Comment Normal Polychromasia Moderate RBC Morph Comment Not Reportable PT 10.5 (9.7-12.0) SECONDS INR 0.98 APTT 22.2 (21.7-31.4) SECONDS D-Dimer, Quantitative 1.09 H (0.19-0.50) mg/L Sodium (136-145) mEq/L Potassium (3.5-5.1) mEq/L Chloride (98-107) mEq/L Carbon Dioxide (21-32) mEq/L Anion Gap (5-15) BUN (7-18) mg/dL Creatinine (0.55-1.02) mg/dL Est Cr Clr Drug Dosing mL/min Estimated GFR (MDRD) (>60) mL/min BUN/Creatinine Ratio (14-18) Glucose (74-106) mg/dL Lactic Acid (0.4-2.0) mmol/L Calcium (8.5-10.1) mg/dL Magnesium (1.8-2.4) mg/dl Ferritin (8-252) ng/ml Total Bilirubin (0.2-1.0) mg/dL AST (15-37) U/L ALT (14-59) U/L Alkaline Phosphatase (46-116) U/L Lactate Dehydrogenase (81-234) U/L Troponin I (0.00-0.056) ng/mL C-Reactive Protein <0.2 (<1.0) mg/dL Total Protein (6.4-8.2) g/dl Albumin (3.4-5.0) g/dl Globulin gm/dL Albumin/Globulin Ratio (1-2) Urine Color (Yellow) Urine Appearance (Clear) Urine pH (5.0-8.0) Ur Specific [place] (1.005-1.030) Urine Protein (Negative) Urine Glucose (UA) (Negative) Urine Ketones (Negative) Urine Occult Blood (Negative) Urine Nitrite (Negative) Urine Bilirubin (Negative) Urine Urobilinogen (0.2-1.0) Ur Leukocyte Esterase (Negative) Urine RBC (0-5) /hpf Urine WBC (0-5) /hpf Ur Squamous Epith Cells (0-5) /hpf Urine Bacteria (FEW) /hpf Urine Mucus (FEW) /hpf Ketones (0.0-0.3) mM Group A Strep (PCR) (NOT DETECT) 08/05/20 08/05/20 08/05/20 Range/Units 13:28 13:28 13:28 WBC (3.98-10.04) K/mm3 RBC (3.98-5.22) M/mm3 Hgb (11.2-15.7) gm/dl Hct (34.1-44.9) % MCV (79.4-94.8) fl MCH (25.6-32.2) pg MCHC (32.2-35.5) g/dl RDW Std Deviation (36.4-46.3) fL Plt Count (182-369) K/mm3 MPV (9.4-12.3) fl Neutrophils % (Manual) (40-60) % Band Neutrophils % (0-10) % Lymphocytes % (Manual) (20-40) % Atypical Lymphs % % Monocytes % (Manual) (2-10) % Eosinophils % (Manual) (0.7-5.8) % Basophils % (Manual) (0.1-1.2) Platelet Estimate Plt Morphology Comment Polychromasia RBC Morph Comment PT (9.7-12.0) SECONDS INR APTT (21.7-31.4) SECONDS D-Dimer, Quantitative (0.19-0.50) mg/L Sodium 143 (136-145) mEq/L Potassium 2.7 L (3.5-5.1) mEq/L Chloride 102 (98-107) mEq/L Carbon Dioxide 24 (21-32) mEq/L Anion Gap 19.7 H (5-15) BUN 14 (7-18) mg/dL Creatinine 1.0 (0.55-1.02) mg/dL Est Cr Clr Drug Dosing 54.41 mL/min Estimated GFR (MDRD) 59 (>60) mL/min BUN/Creatinine Ratio 14.0 (14-18) Glucose 78 (74-106) mg/dL Lactic Acid 6.2 H* (0.4-2.0) mmol/L Calcium 10.2 H D (8.5-10.1) mg/dL Magnesium 2.4 (1.8-2.4) mg/dl Ferritin 45 (8-252) ng/ml Total Bilirubin 0.4 (0.2-1.0) mg/dL AST 148 H (15-37) U/L ALT 40 (14-59) U/L Alkaline Phosphatase 81 (46-116) U/L Lactate Dehydrogenase 275 H (81-234) U/L Troponin I < 0.017 (0.00-0.056) ng/mL C-Reactive Protein (<1.0) mg/dL Total Protein 8.2 (6.4-8.2) g/dl Albumin 3.8 (3.4-5.0) g/dl Globulin 4.4 gm/dL Albumin/Globulin Ratio 0.9 L (1-2) Urine Color (Yellow) Urine Appearance (Clear) Urine pH (5.0-8.0) Ur Specific [place] (1.005-1.030) Urine Protein (Negative) Urine Glucose (UA) (Negative) Urine Ketones (Negative) Urine Occult Blood (Negative) Urine Nitrite (Negative) Urine Bilirubin (Negative) Urine Urobilinogen (0.2-1.0) Ur Leukocyte Esterase (Negative) Urine RBC (0-5) /hpf Urine WBC (0-5) /hpf Ur Squamous Epith Cells (0-5) /hpf Urine Bacteria (FEW) /hpf Urine Mucus (FEW) /hpf Ketones (0.0-0.3) mM Group A Strep (PCR) (NOT DETECT) 08/05/20 08/05/20 08/05/20 Range/Units 13:28 13:52 13:54 WBC (3.98-10.04) K/mm3 RBC (3.98-5.22) M/mm3 Hgb (11.2-15.7) gm/dl Hct (34.1-44.9) % MCV (79.4-94.8) fl MCH (25.6-32.2) pg MCHC (32.2-35.5) g/dl RDW Std Deviation (36.4-46.3) fL Plt Count (182-369) K/mm3 MPV (9.4-12.3) fl Neutrophils % (Manual) (40-60) % Band Neutrophils % (0-10) % Lymphocytes % (Manual) (20-40) % Atypical Lymphs % % Monocytes % (Manual) (2-10) % Eosinophils % (Manual) (0.7-5.8) % Basophils % (Manual) (0.1-1.2) Platelet Estimate Plt Morphology Comment Polychromasia RBC Morph Comment PT (9.7-12.0) SECONDS INR APTT (21.7-31.4) SECONDS D-Dimer, Quantitative (0.19-0.50) mg/L Sodium (136-145) mEq/L Potassium (3.5-5.1) mEq/L Chloride (98-107) mEq/L Carbon Dioxide (21-32) mEq/L Anion Gap (5-15) BUN (7-18) mg/dL Creatinine (0.55-1.02) mg/dL Est Cr Clr Drug Dosing mL/min Estimated GFR (MDRD) (>60) mL/min BUN/Creatinine Ratio (14-18) Glucose (74-106) mg/dL Lactic Acid (0.4-2.0) mmol/L Calcium (8.5-10.1) mg/dL Magnesium (1.8-2.4) mg/dl Ferritin (8-252) ng/ml Total Bilirubin (0.2-1.0) mg/dL AST (15-37) U/L ALT (14-59) U/L Alkaline Phosphatase (46-116) U/L Lactate Dehydrogenase (81-234) U/L Troponin I (0.00-0.056) ng/mL C-Reactive Protein (<1.0) mg/dL Total Protein (6.4-8.2) g/dl Albumin (3.4-5.0) g/dl Globulin gm/dL Albumin/Globulin Ratio (1-2) Urine Color Light yellow (Yellow) Urine Appearance Clear (Clear) Urine pH 7.0 (5.0-8.0) Ur Specific [place] 1.015 (1.005-1.030) Urine Protein Negative (Negative) Urine Glucose (UA) Negative (Negative) Urine Ketones Negative (Negative) Urine Occult Blood Negative (Negative) Urine Nitrite Negative (Negative) Urine Bilirubin Negative (Negative) Urine Urobilinogen 0.2 (0.2-1.0) Ur Leukocyte Esterase Negative (Negative) Urine RBC 0-5 (0-5) /hpf Urine WBC 0-5 (0-5) /hpf Ur Squamous Epith Cells 5-10 H (0-5) /hpf Urine Bacteria Moderate H (FEW) /hpf Urine Mucus Few (FEW) /hpf Ketones 0.23 (0.0-0.3) mM Group A Strep (PCR) Not detected (NOT DETECT) Meds: Medications Generic Name Dose Route Start Last Admin Trade Name Gilbertoq PRN Reason Stop Dose Admin Potassium Chloride 10 meq/ 100 mls @ 100 mls/hr 08/05/20 14:30 08/05/20 15:17 Premix IV 08/05/20 18:29 100 mls/hr Q1H ANIL Administration Sodium Chloride 10 ml 08/05/20 13:47 08/05/20 15:14 Sodium Chloride 0.9% 10 Ml Syringe FLUSH 10 ml ASDIRECTED PRN Administration Keep Vein Open Discontinued Medications Generic Name Dose Route Start Last Admin Trade Name Philippe PRN Reason Stop Dose Admin Fentanyl 50 mcg 08/05/20 15:34 Fentanyl 100 Mcg/2 Ml Sdv IVPUSH 08/05/20 15:35 ONETIME ONE Hydromorphone HCl 1 mg 08/05/20 14:24 08/05/20 15:12 Hydromorphone 1 Mg/Ml Syringe IVPUSH 08/05/20 14:25 1 mg ONETIME ONE Administration Sodium Chloride 1,000 mls @ 999 mls/hr 08/05/20 14:13 08/05/20 15:14 Normal Saline IV 08/05/20 15:13 999 mls/hr ONETIME ONE Administration Sodium Chloride 1,000 mls @ 999 mls/hr 08/05/20 14:36 Normal Saline IV 08/05/20 15:36 ONETIME ONE Ketorolac Tromethamine 30 mg 08/05/20 15:30 Ketorolac 30 Mg/Ml Sdv IVPUSH 08/05/20 15:31 ONETIME ONE Ondansetron HCl 4 mg 08/05/20 14:24 08/05/20 15:10 Ondansetron 4 Mg/2 Ml Sdv IVPUSH 08/05/20 14:25 4 mg ONETIME ONE Administration - Re-Assessments/Exams Free Text/Narrative Re-Assessment/Exam: 08/05/20 14:29 Patient presents to the ER for ongoing COVID-19 symptoms, labs were taken at time of triage, as it was fairly busy in the ER I did have a slight delay in getting to the patient initially. Her labs have somewhat resulted, CBC is essentially unremarkable, potassium is mildly low at 2.7, her anion gap is elevated at 19.7, lactic acid is elevated at 6.2, LDH at 275, troponin undetectably low, CRP is undetectably low. EKG demonstrates no acute ST change or abnormalities reviewed by myself or Dr. Dickey. Still awaiting some of the labs, we will go ahead and give the patient some IV fluids, 1 mg IV Dilaudid, some Zofran for nausea management and we will likely do IV potassium along with oral potassium if she can tolerate oral potassium. 08/05/20 14:51 Patient's strep screen was negative, this was performed due to her ongoing sore throat and developing rash. 08/05/20 15:44 Case was discussed with Dr. Calles, and he is gracious enough to accept the patient for admission at this time. Sepsis was not identified at this time. The patient's lactic acid is likely elevated d/t her not eating/drinking much at all for the past few days. Departure - Departure Time of Disposition: 15:45 Disposition: Admitted As Inpatient 68 Condition: Good Clinical Impression: COVID-19, Hypokalemia, Elevated lactic acid level - Discharge Information *PRESCRIPTION DRUG MONITORING PROGRAM REVIEWED*: No *COPY OF PRESCRIPTION DRUG MONITORING REPORT IN PATIENT SUMMER: No Forms: ED Department Discharge Sepsis Event Note (ED) - Evaluation Sepsis Screening Result: No Definite Risk - Focused Exam Vital Signs: Vital Signs Temp Pulse Resp BP Pulse Ox 08/05/20 13:30 97.6 F 87 18 136/97 H 98 - My Orders Last 24 Hours: My Active Orders 08/05/20 13:47 EKG Documentation Completion [RC] STAT Sodium Chloride 0.9% [Saline Flush] 10 ml FLUSH ASDIRECTED PRN 08/05/20 13:48 Peripheral IV Care [RC] . DIRECTED Peripheral IV Insertion Adult [OM.PC] Routine 08/05/20 14:13 REFLEX LACTIC ACID YES OR NO [CHEM] Routine 08/05/20 14:30 Potassium Chloride [KCl in Water 10 MEQ/100 ML] 10 meq Premix Bag 1 bag IV Q1H - Assessment/Plan Last 24 Hours: My Active Orders 08/05/20 13:47 EKG Documentation Completion [RC] STAT Sodium Chloride 0.9% [Saline Flush] 10 ml FLUSH ASDIRECTED PRN 08/05/20 13:48 Peripheral IV Care [RC] . DIRECTED Peripheral IV Insertion Adult [OM.PC] Routine 08/05/20 14:13 REFLEX LACTIC ACID YES OR NO [CHEM] Routine 08/05/20 14:30 Potassium Chloride [KCl in Water 10 MEQ/100 ML] 10 meq Premix Bag 1 bag IV Q1H
[2020-08-05] MEDS ORDERED: Sodium Chloride 0.9% 1,000 ML IV ONE ×2 (14:13→14:36)
[2020-08-05] MEDS ORDERED: HYDROmorphone 1 MG/ML Syringe IVPUSH ONE (14:24)
[2020-08-05] MEDS ORDERED: Ondansetron 4 MG/2 ML SDV IVPUSH ONE (14:24)
--- NOTE | 2020-08-05 14:30 | CR ---
Chest: Portable view of the chest was obtained. Comparison: Prior chest x-ray of 07/31/20. Heart size and mediastinum are normal. Lungs are clear with no acute parenchymal change. Bony structure shows nothing acute. Impression: 1. Nothing acute is seen on portable chest x-ray. Diagnostic code #1
[2020-08-05] MEDS: Potassium Chloride 10 MEQ in Premix Bag 1 BAG IV SCH ×4 (15:17→21:48)
[2020-08-05] MEDS ORDERED: Ketorolac 30 MG/ML SDV IVPUSH ONE (15:30)
[2020-08-05] MEDS ORDERED: fentaNYL 100 MCG/2 ML SDV IVPUSH ONE (15:34)
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
[2020-08-05] MEDS ORDERED: Docusate Sodium 100 MG Cap PO PRN (16:43)
[2020-08-05] MEDS ORDERED: HYDROmorphone 0.5 MG/0.5 ML Syringe IVPUSH PRN (16:43)
[2020-08-05] MEDS ORDERED: Temazepam 15 MG Cap PO PRN (16:43)
[2020-08-05] MEDS ORDERED: Ondansetron 4 MG/2 ML SDV IV PRN (16:43)
[2020-08-05] MEDS ORDERED: Sodium Chloride 0.9% 1,000 ML IV SCH (16:45)
[2020-08-05] MEDS: Enoxaparin 40 MG/0.4 ML Syringe SUBCUT SCH (17:56)
[2020-08-05] MEDS: cefTRIAXone 2 GM in Sodium Chloride 0.9% 100 ML IV SCH (17:56)
[2020-08-05] MEDS: Ondansetron 4 MG Tab.DIS PO PRN (18:48)
[2020-08-05] MEDS: Topiramate 25 MG Tab PO SCH (20:41)
[2020-08-05] MEDS: diphenhydrAMINE 25 MG Cap PO PRN (20:41)
[2020-08-06] MEDS: diphenhydrAMINE 25 MG Cap PO PRN ×3 (01:33→17:10)
[2020-08-06] MEDS: oxyCODONE 5 MG Tab PO PRN ×4 (01:33→22:03)
--- NOTE | 2020-08-06 07:54 | PCM.PN ---
- General Info Date of Service: 08/06/20 Admission Dx/Problem (Free Text): Admission Diagnosis/Problem Admission Diagnosis/Problem Hypokalemia Subjective Update: Patient is a 50-year-old lady who was admitted to acute hospitalization for aftereffects of COVID-19. The patient today says that she is doing better. She still has a headache. She has been tolerating her diet. She is currently on room air. The patient also has been complaining of continuing burning rash. Benadryl seems to be helping her with this. Functional Status: Reports: Pain Controlled, Tolerating Diet - Review of Systems General: Reports: Fatigue HEENT: Reports: No Symptoms Pulmonary: Reports: No Symptoms Cardiovascular: Reports: No Symptoms Gastrointestinal: Reports: No Symptoms Genitourinary: Reports: No Symptoms Musculoskeletal: Reports: No Symptoms Skin: Reports: Rash Neurological: Reports: No Symptoms Psychiatric: Reports: No Symptoms - Patient Data Vitals - Most Recent: Last Vital Signs Temp 36.7 C 08/06/20 05:47 Pulse 67 08/06/20 05:47 Resp 18 08/06/20 05:47 BP 134/100 H 08/06/20 05:47 Pulse Ox 96 08/06/20 05:47 Weight - Most Recent: 81.647 kg I&O - Last 24 Hours: Intake & Output 08/05/20 08/06/20 08/06/20 22:59 06:59 14:59 Intake Total 3265 Output Total 1800 Balance 1465 Lab Results Last 24 Hours: Laboratory Results - last 24 hr 08/05/20 08/05/20 08/05/20 Range/Units 13:28 13:28 13:28 WBC 7.21 (3.98-10.04) K/mm3 RBC 5.10 (3.98-5.22) M/mm3 Hgb 13.0 D (11.2-15.7) gm/dl Hct 42.1 (34.1-44.9) % MCV 82.5 (79.4-94.8) fl MCH 25.5 L (25.6-32.2) pg MCHC 30.9 L (32.2-35.5) g/dl RDW Std Deviation 49.0 H (36.4-46.3) fL Plt Count 368 D (182-369) K/mm3 MPV 9.2 L (9.4-12.3) fl Neutrophils % (Manual) 85 H (40-60) % Band Neutrophils % 0 (0-10) % Lymphocytes % (Manual) 9 L (20-40) % Atypical Lymphs % 0 % Monocytes % (Manual) 2 (2-10) % Eosinophils % (Manual) 4 (0.7-5.8) % Basophils % (Manual) 0 L (0.1-1.2) Platelet Estimate Adequate Plt Morphology Comment Normal Polychromasia Moderate RBC Morph Comment Not Reportable PT 10.5 (9.7-12.0) SECONDS INR 0.98 APTT 22.2 (21.7-31.4) SECONDS D-Dimer, Quantitative 1.09 H (0.19-0.50) mg/L Sodium (136-145) mEq/L Potassium (3.5-5.1) mEq/L Chloride (98-107) mEq/L Carbon Dioxide (21-32) mEq/L Anion Gap (5-15) BUN (7-18) mg/dL Creatinine (0.55-1.02) mg/dL Est Cr Clr Drug Dosing mL/min Estimated GFR (MDRD) (>60) mL/min BUN/Creatinine Ratio (14-18) Glucose (74-106) mg/dL Lactic Acid (0.4-2.0) mmol/L Calcium (8.5-10.1) mg/dL Magnesium (1.8-2.4) mg/dl Ferritin (8-252) ng/ml Total Bilirubin (0.2-1.0) mg/dL AST (15-37) U/L ALT (14-59) U/L Alkaline Phosphatase (46-116) U/L Lactate Dehydrogenase (81-234) U/L Troponin I (0.00-0.056) ng/mL C-Reactive Protein <0.2 (<1.0) mg/dL Total Protein (6.4-8.2) g/dl Albumin (3.4-5.0) g/dl Globulin gm/dL Albumin/Globulin Ratio (1-2) Urine Color (Yellow) Urine Appearance (Clear) Urine pH (5.0-8.0) Ur Specific [place] (1.005-1.030) Urine Protein (Negative) Urine Glucose (UA) (Negative) Urine Ketones (Negative) Urine Occult Blood (Negative) Urine Nitrite (Negative) Urine Bilirubin (Negative) Urine Urobilinogen (0.2-1.0) Ur Leukocyte Esterase (Negative) Urine RBC (0-5) /hpf Urine WBC (0-5) /hpf Ur Squamous Epith Cells (0-5) /hpf Urine Bacteria (FEW) /hpf Urine Mucus (FEW) /hpf Ketones (0.0-0.3) mM Group A Strep (PCR) (NOT DETECT) 08/05/20 08/05/20 08/05/20 Range/Units 13:28 13:28 13:28 WBC (3.98-10.04) K/mm3 RBC (3.98-5.22) M/mm3 Hgb (11.2-15.7) gm/dl Hct (34.1-44.9) % MCV (79.4-94.8) fl MCH (25.6-32.2) pg MCHC (32.2-35.5) g/dl RDW Std Deviation (36.4-46.3) fL Plt Count (182-369) K/mm3 MPV (9.4-12.3) fl Neutrophils % (Manual) (40-60) % Band Neutrophils % (0-10) % Lymphocytes % (Manual) (20-40) % Atypical Lymphs % % Monocytes % (Manual) (2-10) % Eosinophils % (Manual) (0.7-5.8) % Basophils % (Manual) (0.1-1.2) Platelet Estimate Plt Morphology Comment Polychromasia RBC Morph Comment PT (9.7-12.0) SECONDS INR APTT (21.7-31.4) SECONDS D-Dimer, Quantitative (0.19-0.50) mg/L Sodium 143 (136-145) mEq/L Potassium 2.7 L (3.5-5.1) mEq/L Chloride 102 (98-107) mEq/L Carbon Dioxide 24 (21-32) mEq/L Anion Gap 19.7 H (5-15) BUN 14 (7-18) mg/dL Creatinine 1.0 (0.55-1.02) mg/dL Est Cr Clr Drug Dosing 54.41 mL/min Estimated GFR (MDRD) 59 (>60) mL/min BUN/Creatinine Ratio 14.0 (14-18) Glucose 78 (74-106) mg/dL Lactic Acid 6.2 H* (0.4-2.0) mmol/L Calcium 10.2 H D (8.5-10.1) mg/dL Magnesium 2.4 (1.8-2.4) mg/dl Ferritin 45 (8-252) ng/ml Total Bilirubin 0.4 (0.2-1.0) mg/dL AST 148 H (15-37) U/L ALT 40 (14-59) U/L Alkaline Phosphatase 81 (46-116) U/L Lactate Dehydrogenase 275 H (81-234) U/L Troponin I < 0.017 (0.00-0.056) ng/mL C-Reactive Protein (<1.0) mg/dL Total Protein 8.2 (6.4-8.2) g/dl Albumin 3.8 (3.4-5.0) g/dl Globulin 4.4 gm/dL Albumin/Globulin Ratio 0.9 L (1-2) Urine Color (Yellow) Urine Appearance (Clear) Urine pH (5.0-8.0) Ur Specific [place] (1.005-1.030) Urine Protein (Negative) Urine Glucose (UA) (Negative) Urine Ketones (Negative) Urine Occult Blood (Negative) Urine Nitrite (Negative) Urine Bilirubin (Negative) Urine Urobilinogen (0.2-1.0) Ur Leukocyte Esterase (Negative) Urine RBC (0-5) /hpf Urine WBC (0-5) /hpf Ur Squamous Epith Cells (0-5) /hpf Urine Bacteria (FEW) /hpf Urine Mucus (FEW) /hpf Ketones (0.0-0.3) mM Group A Strep (PCR) (NOT DETECT) 08/05/20 08/05/20 08/05/20 Range/Units 13:28 13:52 13:54 WBC (3.98-10.04) K/mm3 RBC (3.98-5.22) M/mm3 Hgb (11.2-15.7) gm/dl Hct (34.1-44.9) % MCV (79.4-94.8) fl MCH (25.6-32.2) pg MCHC (32.2-35.5) g/dl RDW Std Deviation (36.4-46.3) fL Plt Count (182-369) K/mm3 MPV (9.4-12.3) fl Neutrophils % (Manual) (40-60) % Band Neutrophils % (0-10) % Lymphocytes % (Manual) (20-40) % Atypical Lymphs % % Monocytes % (Manual) (2-10) % Eosinophils % (Manual) (0.7-5.8) % Basophils % (Manual) (0.1-1.2) Platelet Estimate Plt Morphology Comment Polychromasia RBC Morph Comment PT (9.7-12.0) SECONDS INR APTT (21.7-31.4) SECONDS D-Dimer, Quantitative (0.19-0.50) mg/L Sodium (136-145) mEq/L Potassium (3.5-5.1) mEq/L Chloride (98-107) mEq/L Carbon Dioxide (21-32) mEq/L Anion Gap (5-15) BUN (7-18) mg/dL Creatinine (0.55-1.02) mg/dL Est Cr Clr Drug Dosing mL/min Estimated GFR (MDRD) (>60) mL/min BUN/Creatinine Ratio (14-18) Glucose (74-106) mg/dL Lactic Acid (0.4-2.0) mmol/L Calcium (8.5-10.1) mg/dL Magnesium (1.8-2.4) mg/dl Ferritin (8-252) ng/ml Total Bilirubin (0.2-1.0) mg/dL AST (15-37) U/L ALT (14-59) U/L Alkaline Phosphatase (46-116) U/L Lactate Dehydrogenase (81-234) U/L Troponin I (0.00-0.056) ng/mL C-Reactive Protein (<1.0) mg/dL Total Protein (6.4-8.2) g/dl Albumin (3.4-5.0) g/dl Globulin gm/dL Albumin/Globulin Ratio (1-2) Urine Color Light yellow (Yellow) Urine Appearance Clear (Clear) Urine pH 7.0 (5.0-8.0) Ur Specific [place] 1.015 (1.005-1.030) Urine Protein Negative (Negative) Urine Glucose (UA) Negative (Negative) Urine Ketones Negative (Negative) Urine Occult Blood Negative (Negative) Urine Nitrite Negative (Negative) Urine Bilirubin Negative (Negative) Urine Urobilinogen 0.2 (0.2-1.0) Ur Leukocyte Esterase Negative (Negative) Urine RBC 0-5 (0-5) /hpf Urine WBC 0-5 (0-5) /hpf Ur Squamous Epith Cells 5-10 H (0-5) /hpf Urine Bacteria Moderate H (FEW) /hpf Urine Mucus Few (FEW) /hpf Ketones 0.23 (0.0-0.3) mM Group A Strep (PCR) Not detected (NOT DETECT) 08/05/20 08/05/20 08/05/20 Range/Units 16:47 19:50 23:51 WBC (3.98-10.04) K/mm3 RBC (3.98-5.22) M/mm3 Hgb (11.2-15.7) gm/dl Hct (34.1-44.9) % MCV (79.4-94.8) fl MCH (25.6-32.2) pg MCHC (32.2-35.5) g/dl RDW Std Deviation (36.4-46.3) fL Plt Count (182-369) K/mm3 MPV (9.4-12.3) fl Neutrophils % (Manual) (40-60) % Band Neutrophils % (0-10) % Lymphocytes % (Manual) (20-40) % Atypical Lymphs % % Monocytes % (Manual) (2-10) % Eosinophils % (Manual) (0.7-5.8) % Basophils % (Manual) (0.1-1.2) Platelet Estimate Plt Morphology Comment Polychromasia RBC Morph Comment PT (9.7-12.0) SECONDS INR APTT (21.7-31.4) SECONDS D-Dimer, Quantitative (0.19-0.50) mg/L Sodium (136-145) mEq/L Potassium (3.5-5.1) mEq/L Chloride (98-107) mEq/L Carbon Dioxide (21-32) mEq/L Anion Gap (5-15) BUN (7-18) mg/dL Creatinine (0.55-1.02) mg/dL Est Cr Clr Drug Dosing mL/min Estimated GFR (MDRD) (>60) mL/min BUN/Creatinine Ratio (14-18) Glucose (74-106) mg/dL Lactic Acid 4.1 H* 3.8 H* 1.6 (0.4-2.0) mmol/L Calcium (8.5-10.1) mg/dL Magnesium (1.8-2.4) mg/dl Ferritin (8-252) ng/ml Total Bilirubin (0.2-1.0) mg/dL AST (15-37) U/L ALT (14-59) U/L Alkaline Phosphatase (46-116) U/L Lactate Dehydrogenase (81-234) U/L Troponin I (0.00-0.056) ng/mL C-Reactive Protein (<1.0) mg/dL Total Protein (6.4-8.2) g/dl Albumin (3.4-5.0) g/dl Globulin gm/dL Albumin/Globulin Ratio (1-2) Urine Color (Yellow) Urine Appearance (Clear) Urine pH (5.0-8.0) Ur Specific [place] (1.005-1.030) Urine Protein (Negative) Urine Glucose (UA) (Negative) Urine Ketones (Negative) Urine Occult Blood (Negative) Urine Nitrite (Negative) Urine Bilirubin (Negative) Urine Urobilinogen (0.2-1.0) Ur Leukocyte Esterase (Negative) Urine RBC (0-5) /hpf Urine WBC (0-5) /hpf Ur Squamous Epith Cells (0-5) /hpf Urine Bacteria (FEW) /hpf Urine Mucus (FEW) /hpf Ketones (0.0-0.3) mM Group A Strep (PCR) (NOT DETECT) 08/06/20 Range/Units 06:48 WBC (3.98-10.04) K/mm3 RBC (3.98-5.22) M/mm3 Hgb (11.2-15.7) gm/dl Hct (34.1-44.9) % MCV (79.4-94.8) fl MCH (25.6-32.2) pg MCHC (32.2-35.5) g/dl RDW Std Deviation (36.4-46.3) fL Plt Count (182-369) K/mm3 MPV (9.4-12.3) fl Neutrophils % (Manual) (40-60) % Band Neutrophils % (0-10) % Lymphocytes % (Manual) (20-40) % Atypical Lymphs % % Monocytes % (Manual) (2-10) % Eosinophils % (Manual) (0.7-5.8) % Basophils % (Manual) (0.1-1.2) Platelet Estimate Plt Morphology Comment Polychromasia RBC Morph Comment PT (9.7-12.0) SECONDS INR APTT (21.7-31.4) SECONDS D-Dimer, Quantitative (0.19-0.50) mg/L Sodium 137 (136-145) mEq/L Potassium 3.6 (3.5-5.1) mEq/L Chloride 102 (98-107) mEq/L Carbon Dioxide 27 (21-32) mEq/L Anion Gap 11.6 (5-15) BUN 10 (7-18) mg/dL Creatinine 1.1 H (0.55-1.02) mg/dL Est Cr Clr Drug Dosing 49.47 mL/min Estimated GFR (MDRD) 53 (>60) mL/min BUN/Creatinine Ratio 9.1 L (14-18) Glucose 78 (74-106) mg/dL Lactic Acid (0.4-2.0) mmol/L Calcium 7.5 L D (8.5-10.1) mg/dL Magnesium 1.7 L (1.8-2.4) mg/dl Ferritin (8-252) ng/ml Total Bilirubin 0.2 (0.2-1.0) mg/dL AST 33 (15-37) U/L ALT 25 (14-59) U/L Alkaline Phosphatase 68 (46-116) U/L Lactate Dehydrogenase (81-234) U/L Troponin I (0.00-0.056) ng/mL C-Reactive Protein <0.2 (<1.0) mg/dL Total Protein 6.2 L (6.4-8.2) g/dl Albumin 2.9 L (3.4-5.0) g/dl Globulin 3.3 gm/dL Albumin/Globulin Ratio 0.9 L (1-2) Urine Color (Yellow) Urine Appearance (Clear) Urine pH (5.0-8.0) Ur Specific [place] (1.005-1.030) Urine Protein (Negative) Urine Glucose (UA) (Negative) Urine Ketones (Negative) Urine Occult Blood (Negative) Urine Nitrite (Negative) Urine Bilirubin (Negative) Urine Urobilinogen (0.2-1.0) Ur Leukocyte Esterase (Negative) Urine RBC (0-5) /hpf Urine WBC (0-5) /hpf Ur Squamous Epith Cells (0-5) /hpf Urine Bacteria (FEW) /hpf Urine Mucus (FEW) /hpf Ketones (0.0-0.3) mM Group A Strep (PCR) (NOT DETECT) Med Orders - Current: Current Medications Acetaminophen (Acetaminophen 325 Mg Tab) 650 mg PO Q4H PRN PRN Reason: Pain (Mild 1-3)/fever Aspirin (Aspirin 81 Mg Tab.Chew) 81 mg PO DAILY [facility] Bupropion HCl (Bupropion 150 Mg Tab.Er) 150 mg PO DAILY [facility] Dexamethasone (Dexamethasone 4 Mg Tab) 6 mg PO DAILY [facility] Diphenhydramine HCl (Diphenhydramine 25 Mg Cap) 25 mg PO Q6H PRN PRN Reason: Rash Last Admin: 08/06/20 01:33 Dose: 25 mg Documented by: Docusate Sodium (Docusate Sodium 100 Mg Cap) 100 mg PO BID PRN PRN Reason: Constipation Enoxaparin Sodium (Enoxaparin 40 Mg/0.4 Ml Syringe) 40 mg SUBCUT DAILY [facility] Last Admin: 08/05/20 17:56 Dose: 40 mg Documented by: Hydromorphone HCl (Hydromorphone 0.5 Mg/0.5 Ml Syringe) 0.5 mg IVPUSH Q2H PRN PRN Reason: Pain (severe 7-10) Sodium Chloride (Normal Saline) 1,000 mls @ 125 mls/hr IV ASDIRECTED [facility] Last Admin: 08/05/20 21:48 Dose: 125 mls/hr Documented by: Ceftriaxone Sodium 2 gm/ (Sodium Chloride) 100 mls @ 200 mls/hr IV Q24H [facility] Last Admin: 08/05/20 17:56 Dose: 200 mls/hr Documented by: Magnesium Sulfate (Magnesium Sulfate In Water 2 Gm/50 Ml) 2 gm in 50 mls @ 25 mls/hr IV ONETIME ONE Stop: 08/06/20 09:51 Montelukast Sodium (Montelukast 10 Mg Tab) 10 mg PO DAILY [facility] Ondansetron HCl (Ondansetron 4 Mg Tab.Dis) 4 mg PO Q6H PRN PRN Reason: nausea, able to take PO Last Admin: 08/05/20 18:48 Dose: 4 mg Documented by: Ondansetron HCl (Ondansetron 4 Mg/2 Ml Sdv) 4 mg IV Q6H PRN PRN Reason: Nausea/Vomiting Oxycodone HCl (Oxycodone 5 Mg Tab) 5 mg PO Q4H PRN PRN Reason: Pain (moderate 4-6) Last Admin: 08/06/20 01:33 Dose: 5 mg Documented by: Pantoprazole Sodium (Pantoprazole 40 Mg Tab.Cr) 40 mg PO DAILY [facility] Paroxetine HCl (Paroxetine 10 Mg Tab) 40 mg PO DAILY [facility] Sodium Chloride (Sodium Chloride 0.9% 10 Ml Syringe) 10 ml FLUSH ASDIRECTED PRN PRN Reason: Keep Vein Open Last Admin: 08/05/20 15:14 Dose: 10 ml Documented by: Temazepam (Temazepam 15 Mg Cap) 15 mg PO BEDTIME PRN PRN Reason: Sleep Last Admin: 08/05/20 21:50 Dose: 15 mg Documented by: Topiramate (Topiramate 25 Mg Tab) 50 mg PO BEDTIME [facility] Last Admin: 08/05/20 20:41 Dose: 50 mg Documented by: Discontinued Medications Fentanyl (Fentanyl 100 Mcg/2 Ml Sdv) 50 mcg IVPUSH ONETIME ONE Stop: 08/05/20 15:35 Last Admin: 08/05/20 22:03 Dose: Not Given Documented by: Hydromorphone HCl (Hydromorphone 1 Mg/Ml Syringe) 1 mg IVPUSH ONETIME ONE Stop: 08/05/20 14:25 Last Admin: 08/05/20 15:12 Dose: 1 mg Documented by: Sodium Chloride (Normal Saline) 1,000 mls @ 999 mls/hr IV ONETIME ONE Stop: 08/05/20 15:13 Last Admin: 08/05/20 15:14 Dose: 999 mls/hr Documented by: Potassium Chloride 10 meq/ (Premix) 100 mls @ 100 mls/hr IV Q1H [facility] Stop: 08/05/20 18:29 Last Admin: 08/05/20 21:48 Dose: 100 mls/hr Documented by: Sodium Chloride (Normal Saline) 1,000 mls @ 999 mls/hr IV ONETIME ONE Stop: 08/05/20 15:36 Last Admin: 08/05/20 22:10 Dose: 999 mls/hr Documented by: Ketorolac Tromethamine (Ketorolac 30 Mg/Ml Sdv) 30 mg IVPUSH ONETIME ONE Stop: 08/05/20 15:31 Last Admin: 08/05/20 22:03 Dose: Not Given Documented by: Ondansetron HCl (Ondansetron 4 Mg/2 Ml Sdv) 4 mg IVPUSH ONETIME ONE Stop: 08/05/20 14:25 Last Admin: 08/05/20 15:10 Dose: 4 mg Documented by: - Exam Quality Assessment: DVT Prophylaxis. No: Supplemental Oxygen General: Alert, Oriented, Cooperative HEENT: Pupils Equal, Pupils Reactive, EOMI Neck: Supple, Trachea Midline Lungs: Clear to Auscultation, Normal Respiratory Effort Cardiovascular: Regular Rate, Regular Rhythm GI/Abdominal Exam: Normal Bowel Sounds, Soft, Non-Tender, No Distention (Female) Exam: Deferred Back Exam: Normal Inspection, Full Range of Motion Extremities: Normal Inspection, No Pedal Edema Skin: Warm, Dry, Intact, Rash (Erythematous rash to upper right arm) Neurological: No New Focal Deficit Psy/Mental Status: Alert, Normal Affect, Normal Mood - Patient Data Lab Results Last 24 hrs: Laboratory Results - last 24 hr 08/05/20 08/05/20 08/05/20 Range/Units 13:28 13:28 13:28 WBC 7.21 (3.98-10.04) K/mm3 RBC 5.10 (3.98-5.22) M/mm3 Hgb 13.0 D (11.2-15.7) gm/dl Hct 42.1 (34.1-44.9) % MCV 82.5 (79.4-94.8) fl MCH 25.5 L (25.6-32.2) pg MCHC 30.9 L (32.2-35.5) g/dl RDW Std Deviation 49.0 H (36.4-46.3) fL Plt Count 368 D (182-369) K/mm3 MPV 9.2 L (9.4-12.3) fl Neutrophils % (Manual) 85 H (40-60) % Band Neutrophils % 0 (0-10) % Lymphocytes % (Manual) 9 L (20-40) % Atypical Lymphs % 0 % Monocytes % (Manual) 2 (2-10) % Eosinophils % (Manual) 4 (0.7-5.8) % Basophils % (Manual) 0 L (0.1-1.2) Platelet Estimate Adequate Plt Morphology Comment Normal Polychromasia Moderate RBC Morph Comment Not Reportable PT 10.5 (9.7-12.0) SECONDS INR 0.98 APTT 22.2 (21.7-31.4) SECONDS D-Dimer, Quantitative 1.09 H (0.19-0.50) mg/L Sodium (136-145) mEq/L Potassium (3.5-5.1) mEq/L Chloride (98-107) mEq/L Carbon Dioxide (21-32) mEq/L Anion Gap (5-15) BUN (7-18) mg/dL Creatinine (0.55-1.02) mg/dL Est Cr Clr Drug Dosing mL/min Estimated GFR (MDRD) (>60) mL/min BUN/Creatinine Ratio (14-18) Glucose (74-106) mg/dL Lactic Acid (0.4-2.0) mmol/L Calcium (8.5-10.1) mg/dL Magnesium (1.8-2.4) mg/dl Ferritin (8-252) ng/ml Total Bilirubin (0.2-1.0) mg/dL AST (15-37) U/L ALT (14-59) U/L Alkaline Phosphatase (46-116) U/L Lactate Dehydrogenase (81-234) U/L Troponin I (0.00-0.056) ng/mL C-Reactive Protein <0.2 (<1.0) mg/dL Total Protein (6.4-8.2) g/dl Albumin (3.4-5.0) g/dl Globulin gm/dL Albumin/Globulin Ratio (1-2) Urine Color (Yellow) Urine Appearance (Clear) Urine pH (5.0-8.0) Ur Specific [place] (1.005-1.030) Urine Protein (Negative) Urine Glucose (UA) (Negative) Urine Ketones (Negative) Urine Occult Blood (Negative) Urine Nitrite (Negative) Urine Bilirubin (Negative) Urine Urobilinogen (0.2-1.0) Ur Leukocyte Esterase (Negative) Urine RBC (0-5) /hpf Urine WBC (0-5) /hpf Ur Squamous Epith Cells (0-5) /hpf Urine Bacteria (FEW) /hpf Urine Mucus (FEW) /hpf Ketones (0.0-0.3) mM Group A Strep (PCR) (NOT DETECT) 08/05/20 08/05/20 08/05/20 Range/Units 13:28 13:28 13:28 WBC (3.98-10.04) K/mm3 RBC (3.98-5.22) M/mm3 Hgb (11.2-15.7) gm/dl Hct (34.1-44.9) % MCV (79.4-94.8) fl MCH (25.6-32.2) pg MCHC (32.2-35.5) g/dl RDW Std Deviation (36.4-46.3) fL Plt Count (182-369) K/mm3 MPV (9.4-12.3) fl Neutrophils % (Manual) (40-60) % Band Neutrophils % (0-10) % Lymphocytes % (Manual) (20-40) % Atypical Lymphs % % Monocytes % (Manual) (2-10) % Eosinophils % (Manual) (0.7-5.8) % Basophils % (Manual) (0.1-1.2) Platelet Estimate Plt Morphology Comment Polychromasia RBC Morph Comment PT (9.7-12.0) SECONDS INR APTT (21.7-31.4) SECONDS D-Dimer, Quantitative (0.19-0.50) mg/L Sodium 143 (136-145) mEq/L Potassium 2.7 L (3.5-5.1) mEq/L Chloride 102 (98-107) mEq/L Carbon Dioxide 24 (21-32) mEq/L Anion Gap 19.7 H (5-15) BUN 14 (7-18) mg/dL Creatinine 1.0 (0.55-1.02) mg/dL Est Cr Clr Drug Dosing 54.41 mL/min Estimated GFR (MDRD) 59 (>60) mL/min BUN/Creatinine Ratio 14.0 (14-18) Glucose 78 (74-106) mg/dL Lactic Acid 6.2 H* (0.4-2.0) mmol/L Calcium 10.2 H D (8.5-10.1) mg/dL Magnesium 2.4 (1.8-2.4) mg/dl Ferritin 45 (8-252) ng/ml Total Bilirubin 0.4 (0.2-1.0) mg/dL AST 148 H (15-37) U/L ALT 40 (14-59) U/L Alkaline Phosphatase 81 (46-116) U/L Lactate Dehydrogenase 275 H (81-234) U/L Troponin I < 0.017 (0.00-0.056) ng/mL C-Reactive Protein (<1.0) mg/dL Total Protein 8.2 (6.4-8.2) g/dl Albumin 3.8 (3.4-5.0) g/dl Globulin 4.4 gm/dL Albumin/Globulin Ratio 0.9 L (1-2) Urine Color (Yellow) Urine Appearance (Clear) Urine pH (5.0-8.0) Ur Specific [place] (1.005-1.030) Urine Protein (Negative) Urine Glucose (UA) (Negative) Urine Ketones (Negative) Urine Occult Blood (Negative) Urine Nitrite (Negative) Urine Bilirubin (Negative) Urine Urobilinogen (0.2-1.0) Ur Leukocyte Esterase (Negative) Urine RBC (0-5) /hpf Urine WBC (0-5) /hpf Ur Squamous Epith Cells (0-5) /hpf Urine Bacteria (FEW) /hpf Urine Mucus (FEW) /hpf Ketones (0.0-0.3) mM Group A Strep (PCR) (NOT DETECT) 08/05/20 08/05/20 08/05/20 Range/Units 13:28 13:52 13:54 WBC (3.98-10.04) K/mm3 RBC (3.98-5.22) M/mm3 Hgb (11.2-15.7) gm/dl Hct (34.1-44.9) % MCV (79.4-94.8) fl MCH (25.6-32.2) pg MCHC (32.2-35.5) g/dl RDW Std Deviation (36.4-46.3) fL Plt Count (182-369) K/mm3 MPV (9.4-12.3) fl Neutrophils % (Manual) (40-60) % Band Neutrophils % (0-10) % Lymphocytes % (Manual) (20-40) % Atypical Lymphs % % Monocytes % (Manual) (2-10) % Eosinophils % (Manual) (0.7-5.8) % Basophils % (Manual) (0.1-1.2) Platelet Estimate Plt Morphology Comment Polychromasia RBC Morph Comment PT (9.7-12.0) SECONDS INR APTT (21.7-31.4) SECONDS D-Dimer, Quantitative (0.19-0.50) mg/L Sodium (136-145) mEq/L Potassium (3.5-5.1) mEq/L Chloride (98-107) mEq/L Carbon Dioxide (21-32) mEq/L Anion Gap (5-15) BUN (7-18) mg/dL Creatinine (0.55-1.02) mg/dL Est Cr Clr Drug Dosing mL/min Estimated GFR (MDRD) (>60) mL/min BUN/Creatinine Ratio (14-18) Glucose (74-106) mg/dL Lactic Acid (0.4-2.0) mmol/L Calcium (8.5-10.1) mg/dL Magnesium (1.8-2.4) mg/dl Ferritin (8-252) ng/ml Total Bilirubin (0.2-1.0) mg/dL AST (15-37) U/L ALT (14-59) U/L Alkaline Phosphatase (46-116) U/L Lactate Dehydrogenase (81-234) U/L Troponin I (0.00-0.056) ng/mL C-Reactive Protein (<1.0) mg/dL Total Protein (6.4-8.2) g/dl Albumin (3.4-5.0) g/dl Globulin gm/dL Albumin/Globulin Ratio (1-2) Urine Color Light yellow (Yellow) Urine Appearance Clear (Clear) Urine pH 7.0 (5.0-8.0) Ur Specific [place] 1.015 (1.005-1.030) Urine Protein Negative (Negative) Urine Glucose (UA) Negative (Negative) Urine Ketones Negative (Negative) Urine Occult Blood Negative (Negative) Urine Nitrite Negative (Negative) Urine Bilirubin Negative (Negative) Urine Urobilinogen 0.2 (0.2-1.0) Ur Leukocyte Esterase Negative (Negative) Urine RBC 0-5 (0-5) /hpf Urine WBC 0-5 (0-5) /hpf Ur Squamous Epith Cells 5-10 H (0-5) /hpf Urine Bacteria Moderate H (FEW) /hpf Urine Mucus Few (FEW) /hpf Ketones 0.23 (0.0-0.3) mM Group A Strep (PCR) Not detected (NOT DETECT) 08/05/20 08/05/20 08/05/20 Range/Units 16:47 19:50 23:51 WBC (3.98-10.04) K/mm3 RBC (3.98-5.22) M/mm3 Hgb (11.2-15.7) gm/dl Hct (34.1-44.9) % MCV (79.4-94.8) fl MCH (25.6-32.2) pg MCHC (32.2-35.5) g/dl RDW Std Deviation (36.4-46.3) fL Plt Count (182-369) K/mm3 MPV (9.4-12.3) fl Neutrophils % (Manual) (40-60) % Band Neutrophils % (0-10) % Lymphocytes % (Manual) (20-40) % Atypical Lymphs % % Monocytes % (Manual) (2-10) % Eosinophils % (Manual) (0.7-5.8) % Basophils % (Manual) (0.1-1.2) Platelet Estimate Plt Morphology Comment Polychromasia RBC Morph Comment PT (9.7-12.0) SECONDS INR APTT (21.7-31.4) SECONDS D-Dimer, Quantitative (0.19-0.50) mg/L Sodium (136-145) mEq/L Potassium (3.5-5.1) mEq/L Chloride (98-107) mEq/L Carbon Dioxide (21-32) mEq/L Anion Gap (5-15) BUN (7-18) mg/dL Creatinine (0.55-1.02) mg/dL Est Cr Clr Drug Dosing mL/min Estimated GFR (MDRD) (>60) mL/min BUN/Creatinine Ratio (14-18) Glucose (74-106) mg/dL Lactic Acid 4.1 H* 3.8 H* 1.6 (0.4-2.0) mmol/L Calcium (8.5-10.1) mg/dL Magnesium (1.8-2.4) mg/dl Ferritin (8-252) ng/ml Total Bilirubin (0.2-1.0) mg/dL AST (15-37) U/L ALT (14-59) U/L Alkaline Phosphatase (46-116) U/L Lactate Dehydrogenase (81-234) U/L Troponin I (0.00-0.056) ng/mL C-Reactive Protein (<1.0) mg/dL Total Protein (6.4-8.2) g/dl Albumin (3.4-5.0) g/dl Globulin gm/dL Albumin/Globulin Ratio (1-2) Urine Color (Yellow) Urine Appearance (Clear) Urine pH (5.0-8.0) Ur Specific [place] (1.005-1.030) Urine Protein (Negative) Urine Glucose (UA) (Negative) Urine Ketones (Negative) Urine Occult Blood (Negative) Urine Nitrite (Negative) Urine Bilirubin (Negative) Urine Urobilinogen (0.2-1.0) Ur Leukocyte Esterase (Negative) Urine RBC (0-5) /hpf Urine WBC (0-5) /hpf Ur Squamous Epith Cells (0-5) /hpf Urine Bacteria (FEW) /hpf Urine Mucus (FEW) /hpf Ketones (0.0-0.3) mM Group A Strep (PCR) (NOT DETECT) 08/06/20 Range/Units 06:48 WBC (3.98-10.04) K/mm3 RBC (3.98-5.22) M/mm3 Hgb (11.2-15.7) gm/dl Hct (34.1-44.9) % MCV (79.4-94.8) fl MCH (25.6-32.2) pg MCHC (32.2-35.5) g/dl RDW Std Deviation (36.4-46.3) fL Plt Count (182-369) K/mm3 MPV (9.4-12.3) fl Neutrophils % (Manual) (40-60) % Band Neutrophils % (0-10) % Lymphocytes % (Manual) (20-40) % Atypical Lymphs % % Monocytes % (Manual) (2-10) % Eosinophils % (Manual) (0.7-5.8) % Basophils % (Manual) (0.1-1.2) Platelet Estimate Plt Morphology Comment Polychromasia RBC Morph Comment PT (9.7-12.0) SECONDS INR APTT (21.7-31.4) SECONDS D-Dimer, Quantitative (0.19-0.50) mg/L Sodium 137 (136-145) mEq/L Potassium 3.6 (3.5-5.1) mEq/L Chloride 102 (98-107) mEq/L Carbon Dioxide 27 (21-32) mEq/L Anion Gap 11.6 (5-15) BUN 10 (7-18) mg/dL Creatinine 1.1 H (0.55-1.02) mg/dL Est Cr Clr Drug Dosing 49.47 mL/min Estimated GFR (MDRD) 53 (>60) mL/min BUN/Creatinine Ratio 9.1 L (14-18) Glucose 78 (74-106) mg/dL Lactic Acid (0.4-2.0) mmol/L Calcium 7.5 L D (8.5-10.1) mg/dL Magnesium 1.7 L (1.8-2.4) mg/dl Ferritin (8-252) ng/ml Total Bilirubin 0.2 (0.2-1.0) mg/dL AST 33 (15-37) U/L ALT 25 (14-59) U/L Alkaline Phosphatase 68 (46-116) U/L Lactate Dehydrogenase (81-234) U/L Troponin I (0.00-0.056) ng/mL C-Reactive Protein <0.2 (<1.0) mg/dL Total Protein 6.2 L (6.4-8.2) g/dl Albumin 2.9 L (3.4-5.0) g/dl Globulin 3.3 gm/dL Albumin/Globulin Ratio 0.9 L (1-2) Urine Color (Yellow) Urine Appearance (Clear) Urine pH (5.0-8.0) Ur Specific [place] (1.005-1.030) Urine Protein (Negative) Urine Glucose (UA) (Negative) Urine Ketones (Negative) Urine Occult Blood (Negative) Urine Nitrite (Negative) Urine Bilirubin (Negative) Urine Urobilinogen (0.2-1.0) Ur Leukocyte Esterase (Negative) Urine RBC (0-5) /hpf Urine WBC (0-5) /hpf Ur Squamous Epith Cells (0-5) /hpf Urine Bacteria (FEW) /hpf Urine Mucus (FEW) /hpf Ketones (0.0-0.3) mM Group A Strep (PCR) (NOT DETECT) Result Diagrams: 08/06/20 06:48 08/06/20 06:48 Sepsis Event Note - Evaluation Sepsis Screening Result: No Definite Risk - Focused Exam Vital Signs: Vital Signs Temp Pulse Resp BP Pulse Ox 08/06/20 05:47 36.7 C 67 18 134/100 H 96 08/06/20 03:00 16 08/05/20 23:00 17 08/05/20 20:24 36.7 C 74 16 122/82 96 - Problem List & Annotations (1) COVID-19 SNOMED Code(s): 246104851 Code(s): U07.1 - COVID-19 Status: Acute Priority: High Current Visit: Yes (2) Elevated lactic acid level SNOMED Code(s): 0110716 Code(s): R79.89 - OTHER SPECIFIED ABNORMAL FINDINGS OF BLOOD CHEMISTRY Status: Acute Priority: High Current Visit: Yes (3) Intractable nausea and vomiting SNOMED Code(s): 979490944 Code(s): R11.2 - NAUSEA WITH VOMITING, UNSPECIFIED Status: Acute Priority: High Current Visit: Yes - Problem List Review Problem List Initiated/Reviewed/Updated: Yes - My Orders Last 24 Hours: My Active Orders 08/05/20 16:43 Oxygen Therapy [RC] PRN Up ad Katiana [RC] ASDIRECTED VTE/DVT Education [RC] DAILY Vital Signs [RC] Q4HR Acetaminophen [TylenoL] 650 mg PO Q4H PRN Docusate Sodium [Colace] 100 mg PO BID PRN HYDROmorphone [Dilaudid] 0.5 mg IVPUSH Q2H PRN Ondansetron [Zofran ODT] 4 mg PO Q6H PRN Ondansetron [Zofran] 4 mg IV Q6H PRN Temazepam [Restoril] 15 mg PO BEDTIME PRN oxyCODONE 5 mg PO Q4H PRN Resuscitation Status Routine 08/05/20 16:45 Cardiac Monitoring [RC] CONTINUOUS Enoxaparin [Lovenox] 40 mg SUBCUT DAILY Sodium Chloride 0.9% [Normal Saline] 1,000 ml IV ASDIRECTED cefTRIAXone [Rocephin] 2 gm Sodium Chloride 0.9% [Normal Saline] 100 ml IV Q24H 08/05/20 Dinner Regular Diet [DIET] 08/05/20 17:24 Patient Status [ADT] Routine 08/05/20 20:19 diphenhydrAMINE [Benadryl] 25 mg PO Q6H PRN 08/05/20 21:00 Topiramate [Topamax] 50 mg PO BEDTIME 08/06/20 06:48 CBC WITH AUTO DIFF [HEME] AM 08/06/20 07:52 Magnesium Sulfate/Water [Magnesium Sulfate in Water 2 GM/50 ML] 2 gm in 50 ml IV ONETIME 08/06/20 09:00 Aspirin 81 mg PO DAILY Montelukast [Singulair] 10 mg PO DAILY PARoxetine [Paxil] 40 mg PO DAILY Pantoprazole [ProTONIX] 40 mg PO DAILY buPROPion [Wellbutrin XL] 150 mg PO DAILY dexAMETHasone 6 mg PO DAILY The patient is a 50-year-old lady who is doing somewhat better today. She is still having headache and she is on narcotic pain medication for this. I have advised the patient that the narcotics can occasionally cause headaches themselves. The patient also has antibiotics out of concern for possible Covid pneumonia. I have ordered repeat chest x-ray for tomorrow. Repeat laboratory studies have been ordered. She will also be continued on her dose of steroids. Patient should be appropriate for discharge in 1 to 2 days.
[2020-08-06] MEDS ORDERED: Magnesium Sulfate/Water 2 GM/50 ML BAG IV ONE (08:30)
[2020-08-06] MEDS: Aspirin 81 MG Tab.Chew PO SCH (08:43)
[2020-08-06] MEDS: Ondansetron 4 MG Tab.DIS PO PRN (08:43)
[2020-08-06] MEDS: Dexamethasone 4 MG Tab PO SCH (08:44)
[2020-08-06] MEDS: buPROPion 150 MG Tab.ER PO SCH (08:44)
[2020-08-06] MEDS: Montelukast 10 MG Tab PO SCH (08:45)
[2020-08-06] MEDS: Enoxaparin 40 MG/0.4 ML Syringe SUBCUT SCH (08:45)
[2020-08-06] MEDS: Pantoprazole 40 MG Tab.CR PO SCH (08:45)
[2020-08-06] MEDS: Acetaminophen 325 MG Tab PO PRN (11:50)
[2020-08-06] MEDS: cefTRIAXone 2 GM in Sodium Chloride 0.9% 100 ML IV SCH (16:31)
[2020-08-06] MEDS: Topiramate 25 MG Tab PO SCH (22:02)
[2020-08-07] MEDS: diphenhydrAMINE 25 MG Cap PO PRN ×2 (01:25→09:37)
[2020-08-07] MEDS ORDERED: Promethazine 25 MG Tab PO ONE (09:12)
[2020-08-07] MEDS: Dexamethasone 4 MG Tab PO SCH (09:18)
[2020-08-07] MEDS: buPROPion 150 MG Tab.ER PO SCH (09:18)
[2020-08-07] MEDS: Pantoprazole 40 MG Tab.CR PO SCH (09:19)
[2020-08-07] MEDS: Montelukast 10 MG Tab PO SCH (09:19)
[2020-08-07] MEDS: Aspirin 81 MG Tab.Chew PO SCH (09:20)
[2020-08-07] MEDS: Enoxaparin 40 MG/0.4 ML Syringe SUBCUT SCH (09:20)
[2020-08-07] MEDS: Acetaminophen 325 MG Tab PO PRN (09:35)
--- NOTE | 2020-08-07 11:19 | PCM.DCSUM1 ---
Discharge Summary - Hospital Course HPI Initial Comments: Patient is a 50-year-old lady who had presented to the emergency department out of concern for ongoing COVID-19 symptoms. She had been diagnosed with COVID-19 approximately a week prior to presentation. It was reported that the patient's found her unresponsive but breathing. The patient reports that she has been feeling increasingly more fatigued and unable to move. She also had been previously on steroids due to a recent diagnosis of multiple sclerosis. She reports that she has had visual issues from the MS but her vision today is normal. The patient also has been complaining of nausea and vomiting and she had been previously on Zofran but this is not helped her. The patient says that she has also been having a sunburn type rash on her upper arms and onto her chest. The patient says that this rash comes and goes. The patient has described this as a burning sensation. Diagnosis: Stroke: No - Discharge Data Discharge Date: 08/07/20 (Admit date: 08/05/20) Discharge Disposition: Home, Self-Care 01 Condition: Good - Referral to Home Health Primary Care Physician: PCP None - Discharge Diagnosis/Problem(s) (1) COVID-19 SNOMED Code(s): 063482078 ICD Code: U07.1 - COVID-19 Status: Acute Priority: High (2) Elevated lactic acid level SNOMED Code(s): 1758332 ICD Code: R79.89 - OTHER SPECIFIED ABNORMAL FINDINGS OF BLOOD CHEMISTRY Status: Resolved Priority: High (3) Intractable nausea and vomiting SNOMED Code(s): 505879849 ICD Code: R11.2 - NAUSEA WITH VOMITING, UNSPECIFIED Status: Acute Priority: High - Patient Summary/Data Labs Pending at D/C: None Recommended Follow-up Testing/Procedures: Follow-up with primary care provider within 7-10 days of discharge, sooner if needed -Recommend repeat CBC, CMP, and magnesium at that visit. -Patient reports a rash that comes and goes. This may require further work-up as it was not demonstrated while here. Hospital Course: This is a 50-year-old female presented to ED on 08/05/2020 with worsening Covid symptoms. She had been diagnosed with Covid approximately 1 week prior and was seen in the ED on 07/31/2020 for similar symptoms. At that time she was given oral steroids for outpatient management and discharge. During this visit her had called for the ambulance as she was found somewhat unresponsive. She reported a rash on her upper body that comes and goes. She reports that she had been having poor oral intake due to nausea. She had been receiving Zofran but this was not helping. In the ED she was found to have a very elevated lactic acid at 6.2. It is felt this is elevated because of her poor oral intake and from her being septic. There was no leukocytosis. Chest x-ray showed nothing acute. UA was clear. CRP was less than 0.2. Potassium was noted to be low at 2.7 and this was supplemented. She is given IV fluids. Magnesium was also low and was supplemented. Did a significant headache and was receiving Tylenol and oxycodone for this. She is also reporting diarrhea but this resolved. She was already receiving dexamethasone p.o. daily and this was continued. She did receive some IV Rocephin but this was discontinued at there is no indication for antibiotics. She did state that she was feeling much better today, although she still had a headache. We discussed how unfortunately with Covid many of the symptoms can wax and wane and a headache is often reported with the symptoms. She felt that she was appropriate for discharge. She was prescribed aspirin 81 mg p.o. daily as studies have shown that this can help with the coagulopathies associated with Covid disease. She was also given a prescription for 25 mg p.o. every 6 hours as needed Phenergan as she has been having continued nausea that waxes and wanes. Patient reported having a rash at home but this was not demonstrated here. She was advised to take [id number] Benadryl for this and follow-up with her primary care provider. We discussed any possible aggravating factors or changes to her routine which may have preceded this rash and she did not know of any. Oxygen saturations have been in the upper 90s with no respiratory distress. She was discharged home today. Instructed to take Tylenol as needed for headache pain. - Patient Instructions Diet: Usual Diet as Tolerated Activity: As Tolerated Driving: Do Not Drive (until feeling better ) Showering/Bathing: May Shower Notify Provider of: Fever, Increased Pain, Nausea and/or Vomiting Other/Special Instructions: Follow-up with primary care provider within 7-10 days of discharge, sooner if needed. Resume home medications as directed. You were started on a baby aspirin. This has been shown in some studies to help with clottin caused by COVID-19. Stay active. You should continue to isolate for 20 days from the onset of symptoms. You will likley be contacted by a family service caseworker for the [facility]. Follow their directions. Take all new medications as directed. You may take OTC tylenol for symptoms/pain. You may take benadryl for your rash. You will not be recieving an antibiotic as we can find no source of bacterial infection. Antibioitics do not help with viral illness (COVID is a viral illness). Should symptoms return or worsen contact your primary care provider or return to the Emergency Department. - Discharge Plan *PRESCRIPTION DRUG MONITORING PROGRAM REVIEWED*: No *COPY OF PRESCRIPTION DRUG MONITORING REPORT IN PATIENT SUMMER: No Prescriptions/Med Rec: Aspirin 81 mg PO DAILY #30 tab.chew Promethazine [Phenergan] 25 mg PO Q6H PRN #8 tab PRN Reason: Nausea Home Medications: Home Meds PARoxetine HCL [Paroxetine HCl] 40 mg PO DAILY 01/12/16 [History] Pantoprazole Sodium 40 mg PO DAILY 01/12/16 [History] Ondansetron [Zofran ODT] 4 mg PO Q8H PRN #15 tab.dis 07/31/20 [Rx] dexAMETHasone [Decadron] 6 mg PO DAILY 10 Days #10 tablet 07/31/20 [Rx] Montelukast [Singulair] 10 mg PO BEDTIME 08/05/20 [History] Topiramate [Topamax] 50 mg PO BEDTIME 08/05/20 [History] buPROPion [buPROPion XL] 150 mg PO DAILY 08/05/20 [History] Aspirin 81 mg PO DAILY #30 tab.chew 08/07/20 [Rx] Promethazine [Phenergan] 25 mg PO Q6H PRN #8 tab 08/07/20 [Rx] Oxygen Therapy Mode: Room Air Patient Handouts: COVID-19, COVID-19: How to Protect Yourself and Others - CDC, Sepsis, Self Care, Adult Referrals: Flavia Foote PA-C [Ordering Only Provider] - - Discharge Summary/Plan Comment DC Time >30 min.: Yes (45 mins ) - General Info Date of Service: 08/07/20 Admission Dx/Problem (Free Text: Admission Diagnosis/Problem Admission Diagnosis/Problem Hypokalemia Functional Status: Reports: Pain Controlled, Tolerating Diet, Ambulating, Urinating. Denies: New Symptoms - Review of Systems General: Reports: No Symptoms. Denies: Fever, Weakness, Fatigue, Malaise, Chills HEENT: Reports: Headaches, Sore Throat Pulmonary: Denies: Shortness of Breath, Cough, Sputum, Wheezing Cardiovascular: Reports: No Symptoms. Denies: Chest Pain, Palpitations, Dyspnea on Exertion, Edema Gastrointestinal: Reports: Nausea (at times ). Denies: Abdominal Pain, Constipation, Diarrhea, Vomiting Genitourinary: Reports: No Symptoms, Pain Musculoskeletal: Reports: No Symptoms Skin: Reports: No Symptoms. Denies: Cyanosis Neurological: Reports: No Symptoms. Denies: Confusion, Pre-Existing Deficit, Difficulty Walking, Weakness, Gait Disturbance Psychiatric: Reports: No Symptoms - Patient Data Vitals - Most Recent: Last Vital Signs Temp 98.1 F 08/07/20 07:37 Pulse 65 08/07/20 07:37 Resp 18 08/07/20 07:37 BP 116/95 H 08/07/20 07:37 Pulse Ox 99 08/07/20 07:37 Weight - Most Recent: 182 lb 14.4 oz I&O - Last 24 hours: Intake & Output 08/06/20 08/07/20 08/07/20 22:59 06:59 14:59 Intake Total 2235 1100 Output Total 2400 500 Balance -165 600 Lab Results - Last 24 hrs: Laboratory Results - last 24 hr 08/07/20 08/07/20 Range/Units 04:37 04:37 WBC 5.04 (3.98-10.04) K/mm3 RBC 4.36 (3.98-5.22) M/mm3 Hgb 11.3 (11.2-15.7) gm/dl Hct 36.9 (34.1-44.9) % MCV 84.6 (79.4-94.8) fl MCH 25.9 (25.6-32.2) pg MCHC 30.6 L (32.2-35.5) g/dl RDW Std Deviation 49.4 H (36.4-46.3) fL Plt Count 291 D (182-369) K/mm3 MPV 9.4 (9.4-12.3) fl Neut % (Auto) 51.4 (34.0-71.1) % Lymph % (Auto) 31.9 (19.3-51.7) % Starr % (Auto) 12.1 (4.7-12.5) % Eos % (Auto) 0.6 L (0.7-5.8) Baso % (Auto) 0.6 (0.1-1.2) % Neut # (Auto) 2.59 (1.56-6.13) K/mm3 Lymph # (Auto) 1.61 (1.18-3.74) K/mm3 Starr # (Auto) 0.61 H (0.24-0.36) K/mm3 Eos # (Auto) 0.03 L (0.04-0.36) K/mm3 Baso # (Auto) 0.03 (0.01-0.08) K/mm3 Manual Slide Review Abnormal smear Sodium 142 (136-145) mEq/L Potassium 3.9 (3.5-5.1) mEq/L Chloride 108 H (98-107) mEq/L Carbon Dioxide 25 (21-32) mEq/L Anion Gap 12.9 (5-15) BUN 8 (7-18) mg/dL Creatinine 0.9 (0.55-1.02) mg/dL Est Cr Clr Drug Dosing 60.46 mL/min Estimated GFR (MDRD) > 60 (>60) mL/min BUN/Creatinine Ratio 8.9 L (14-18) Glucose 98 (74-106) mg/dL Calcium 8.4 L (8.5-10.1) mg/dL Magnesium 2.2 (1.8-2.4) mg/dl Total Bilirubin 0.2 (0.2-1.0) mg/dL AST 21 (15-37) U/L ALT 22 (14-59) U/L Alkaline Phosphatase 63 (46-116) U/L Total Protein 6.1 L (6.4-8.2) g/dl Albumin 2.6 L (3.4-5.0) g/dl Globulin 3.5 gm/dL Albumin/Globulin Ratio 0.7 L (1-2) Med Orders - Current: Current Medications Acetaminophen (Acetaminophen 325 Mg Tab) 650 mg PO Q4H PRN PRN Reason: Pain (Mild 1-3)/fever Last Admin: 08/07/20 09:35 Dose: 650 mg Documented by: Aspirin (Aspirin 81 Mg Tab.Chew) 81 mg PO DAILY [facility] Last Admin: 08/07/20 09:20 Dose: 81 mg Documented by: Bupropion HCl (Bupropion 150 Mg Tab.Er) 150 mg PO DAILY [facility] Last Admin: 08/07/20 09:18 Dose: 150 mg Documented by: Dexamethasone (Dexamethasone 4 Mg Tab) 6 mg PO DAILY [facility] Last Admin: 08/07/20 09:18 Dose: 6 mg Documented by: Diphenhydramine HCl (Diphenhydramine 25 Mg Cap) 25 mg PO Q6H PRN PRN Reason: Rash Last Admin: 08/07/20 09:37 Dose: 25 mg Documented by: Docusate Sodium (Docusate Sodium 100 Mg Cap) 100 mg PO BID PRN PRN Reason: Constipation Enoxaparin Sodium (Enoxaparin 40 Mg/0.4 Ml Syringe) 40 mg SUBCUT DAILY [facility] Last Admin: 08/07/20 09:20 Dose: 40 mg Documented by: Hydromorphone HCl (Hydromorphone 0.5 Mg/0.5 Ml Syringe) 0.5 mg IVPUSH Q2H PRN PRN Reason: Pain (severe 7-10) Ceftriaxone Sodium 2 gm/ (Sodium Chloride) 100 mls @ 200 mls/hr IV Q24H [facility] Last Admin: 08/06/20 16:31 Dose: 200 mls/hr Documented by: Montelukast Sodium (Montelukast 10 Mg Tab) 10 mg PO DAILY [facility] Last Admin: 08/07/20 09:19 Dose: 10 mg Documented by: Ondansetron HCl (Ondansetron 4 Mg Tab.Dis) 4 mg PO Q6H PRN PRN Reason: nausea, able to take PO Last Admin: 08/06/20 08:43 Dose: 4 mg Documented by: Ondansetron HCl (Ondansetron 4 Mg/2 Ml Sdv) 4 mg IV Q6H PRN PRN Reason: Nausea/Vomiting Oxycodone HCl (Oxycodone 5 Mg Tab) 5 mg PO Q4H PRN PRN Reason: Pain (moderate 4-6) Last Admin: 08/06/20 22:03 Dose: 5 mg Documented by: Pantoprazole Sodium (Pantoprazole 40 Mg Tab.Cr) 40 mg PO DAILY [facility] Last Admin: 08/07/20 09:19 Dose: 40 mg Documented by: Paroxetine HCl (Paroxetine 10 Mg Tab) 40 mg PO DAILY [facility] Last Admin: 08/07/20 09:18 Dose: 40 mg Documented by: Sodium Chloride (Sodium Chloride 0.9% 10 Ml Syringe) 10 ml FLUSH ASDIRECTED PRN PRN Reason: Keep Vein Open Last Admin: 08/05/20 15:14 Dose: 10 ml Documented by: Temazepam (Temazepam 15 Mg Cap) 15 mg PO BEDTIME PRN PRN Reason: Sleep Last Admin: 08/05/20 21:50 Dose: 15 mg Documented by: Topiramate (Topiramate 25 Mg Tab) 50 mg PO BEDTIME [facility] Last Admin: 08/06/20 22:02 Dose: 50 mg Documented by: Discontinued Medications Fentanyl (Fentanyl 100 Mcg/2 Ml Sdv) 50 mcg IVPUSH ONETIME ONE Stop: 08/05/20 15:35 Last Admin: 08/05/20 22:03 Dose: Not Given Documented by: Hydromorphone HCl (Hydromorphone 1 Mg/Ml Syringe) 1 mg IVPUSH ONETIME ONE Stop: 08/05/20 14:25 Last Admin: 08/05/20 15:12 Dose: 1 mg Documented by: Sodium Chloride (Normal Saline) 1,000 mls @ 999 mls/hr IV ONETIME ONE Stop: 08/05/20 15:13 Last Admin: 08/05/20 15:14 Dose: 999 mls/hr Documented by: Potassium Chloride 10 meq/ (Premix) 100 mls @ 100 mls/hr IV Q1H [facility] Stop: 08/05/20 18:29 Last Admin: 08/05/20 21:48 Dose: 100 mls/hr Documented by: Sodium Chloride (Normal Saline) 1,000 mls @ 999 mls/hr IV ONETIME ONE Stop: 08/05/20 15:36 Last Admin: 08/05/20 22:10 Dose: 999 mls/hr Documented by: Sodium Chloride (Normal Saline) 1,000 mls @ 125 mls/hr IV ASDIRECTED [facility] Last Admin: 08/05/20 21:48 Dose: 125 mls/hr Documented by: Magnesium Sulfate (Magnesium Sulfate In Water 2 Gm/50 Ml) 2 gm in 50 mls @ 25 mls/hr IV ONETIME ONE Stop: 08/06/20 10:29 Last Admin: 08/06/20 08:45 Dose: 25 mls/hr Documented by: Ketorolac Tromethamine (Ketorolac 30 Mg/Ml Sdv) 30 mg IVPUSH ONETIME ONE Stop: 08/05/20 15:31 Last Admin: 08/05/20 22:03 Dose: Not Given Documented by: Ondansetron HCl (Ondansetron 4 Mg/2 Ml Sdv) 4 mg IVPUSH ONETIME ONE Stop: 08/05/20 14:25 Last Admin: 08/05/20 15:10 Dose: 4 mg Documented by: Promethazine HCl (Promethazine 25 Mg Tab) 25 mg PO ONETIME ONE Stop: 08/07/20 09:13 Last Admin: 08/07/20 09:35 Dose: 25 mg Documented by: - Exam Quality Assessment: Reports: DVT Prophylaxis. Denies: Supplemental Oxygen, Urine Catheter General: Reports: Alert, Oriented, Cooperative, No Acute Distress HEENT: Reports: Pupils Equal, Pupils Reactive, Mucous Membr. Moist/[place] Neck: Reports: Supple, Trachea Midline Lungs: Reports: Clear to Auscultation, Normal Respiratory Effort, Decreased Breath Sounds Cardiovascular: Reports: Regular Rate, Regular Rhythm GI/Abdominal Exam: Normal Bowel Sounds, Soft, Non-Tender, No Distention (Female) Exam: Deferred Rectal (Female) Exam: Deferred Back Exam: Reports: Normal Inspection, Full Range of Motion Extremities: Normal Inspection, Normal Range of Motion, Non-Tender, No Pedal Edema Skin: Reports: Warm, Dry, Intact Neurological: Reports: No New Focal Deficit Psy/Mental Status: Reports: Alert, Normal Affect, Normal Mood
[2020-08-07] MEDS: Ondansetron 4 MG Tab.DIS PO PRN (11:39)
[2020-08-07 12:00] VITALS: BP 142/92; PULSE 61
== END 2020-08-07 13:08 | disposition home or self-care (01) | DRG 137 ==
LOC: JD.ED 13:20 → JD.MS 16:08
PROVIDERS: ADMIT Internal Medicine; ATTEND Internal Medicine
DX: U07.1 COVID-19 (principal); H54.7 Unspecified visual loss; I10 Essential (primary) hypertension; R79.89 Other specified abnormal findings of blood chemistry; K21.9 Gastro-esophageal reflux disease without esophagitis; F41.9 Anxiety disorder, unspecified; F32.9 Major depressive disorder, single episode, unspecified; K44.9 Diaphragmatic hernia without obstruction or gangrene; E87.6 Hypokalemia; Z88.5 Allergy status to narcotic agent; Z91.040 Latex allergy status; Z79.899 Other long term (current) drug therapy; Z85.820 Personal history of malignant melanoma of skin
CPT/HCPCS: 36415; 71045; 71045-26; 80053; 81001; 82009; 82728; 83605; 83615; 83735; 84484; 85007; 85025; 85027; 85379; 85610; 85730; 86140; 87651-QW; 93005; 93010; 94762; 96365; 96366; 96375; 99285; 99285-25; A9270-GY; J0696; J1170; J1650; J2405; J3475; J3480; J7030; J8540; J8597

== ENCOUNTER 2020-12-21 13:17 | Emergency (ER) | payer BC ==
[2020-12-21 13:42] VITALS: BP 125/74; PULSE 70
[2020-12-21] MEDS: Ondansetron 4 MG/2 ML SDV IVPUSH ONE (14:18)
[2020-12-21] MEDS: Sodium Chloride 0.9% 1,000 ML IV STA (14:18)
[2020-12-21] MEDS: Sodium Chloride 0.9% 10 ML Syringe FLUSH PRN ×2 (14:18→15:01)
[2020-12-21] MEDS: HYDROmorphone 1 MG/ML Syringe IVPUSH ONE (14:19)
[2020-12-21] MEDS: Iopamidol 612 MG/ML 100 ML Bottle IVPUSH ONE (15:00)
[2020-12-21] MEDS: Diatrizoate Meglumine/Diatrizoate Sodium 37% 120 ML Bottle PO ONE (15:00)
--- NOTE | 2020-12-21 15:28 | CT ---
CT abdomen and pelvis Technique: Multiple axial sections were obtained from above the dome of the diaphragm inferiorly through the pubic symphysis. Intravenous and oral contrast was utilized. Delayed images were obtained through the bladder. Reconstructed coronal and sagittal were obtained. Comparison: Prior CT abdomen and pelvis study of 10/23/19. Findings: Small portion of the visualized lung bases show nothing acute. Liver contains no focal parenchymal abnormality. Surgical clips are noted from prior cholecystectomy. Spleen size is normal. Adrenal glands show no nodule. Pancreas appears within normal limits. Kidneys show symmetric contrast enhancement. Calcification is noted within the inferior right kidney measuring around 6 mm. Small cyst is noted within the lower left kidney measuring approximately 5 mm. Minimal cyst is noted within the right kidney measuring 7 mm. Contrast is seen within the distal ureters and within the bladder. Abdominal aorta shows no aneurysm. No retroperitoneal adenopathy or mesenteric abnormalities are seen. Prior stomach surgery is noted. No pelvic mass or adenopathy is seen. Surgical material is seen around the tip of the cecum most likely relating to prior appendectomy. Mild increased stool is seen throughout the colon. Bone window settings were reviewed which show no acute osseous abnormality. Impression: 1. Findings as noted above which are believed to be fairly stable from prior study. 2. Mild increased stool within the colon. 3. Nothing acute is otherwise seen on CT study of the abdomen and pelvis. Diagnostic code #2
--- NOTE | 2020-12-21 15:47 | EDM.PDOC ---
ED HPI GENERAL MEDICAL PROBLEM - General Chief Complaint: Abdominal Pain Stated Complaint: BACK PAIN/ABD PAIN Time Seen by Provider: 12/21/20 13:55 Source of Information: Reports: Patient History Limitations: Reports: No Limitations - History of Present Illness INITIAL COMMENTS - FREE TEXT/NARRATIVE: The patient presents with upper abdominal pain, nausea and vomiting. This sta rted 3 days ago. She says the pain radiates to her back. When ever she eats she has nausea and vomiting. She has no fever, chills, cough, chest pain, shortness of breath, dysuria or diarrhea. She said earlier in the month she was in [place] and twice she ended up having het stroke. In the hospital her K was low at 1.6 and her blood sugar was high. She was told she had diabetes. When she came back to [place] her work up for diabetes was normal. She had her appendix and gallbladder removed. She also had a hysterectomy. Onset: Gradual Duration: Day(s): Location: Reports: Abdomen Quality: Reports: Sharp Severity: Severe Improves with: Reports: None Worsens with: Reports: Eating Associated Symptoms: Reports: Nausea/Vomiting. Denies: Chest Pain, Cough, Fever/Chills, Headaches, Shortness of Breath Epigastric Pain Score (Numeric/FACES): 6 - Related Data Allergies Allergy/AdvReac Type Severity Reaction Status Date / Time codeine Allergy Rash Verified 12/21/20 13:44 latex Allergy Rash Verified 12/21/20 13:44 Home Meds: Home Meds PARoxetine HCL [Paroxetine HCl] 40 mg PO DAILY 01/12/16 [History] Pantoprazole Sodium 40 mg PO DAILY 01/12/16 [History] Ondansetron [Zofran ODT] 4 mg PO Q8H PRN #15 tab.dis 07/31/20 [Rx] dexAMETHasone [Decadron] 6 mg PO DAILY 10 Days #10 tablet 07/31/20 [Rx] Montelukast [Singulair] 10 mg PO BEDTIME 08/05/20 [History] Topiramate [Topamax] 50 mg PO BEDTIME 08/05/20 [History] buPROPion [buPROPion XL] 150 mg PO DAILY 08/05/20 [History] Aspirin 81 mg PO DAILY #30 tab.chew 08/07/20 [Rx] Promethazine [Phenergan] 25 mg PO Q6H PRN #8 tab 08/07/20 [Rx] Cyclobenzaprine [Flexeril] 10 mg PO TID PRN #20 tab 12/21/20 [Rx] Past Medical History - Past Health History Medical/Surgical History: Denies Medical/Surgical History HEENT History: Reports: Allergic Rhinitis, Impaired Vision Other HEENT History: wears glasses Cardiovascular History: Reports: Hypertension Respiratory History: Reports: Other (See Below) Other Respiratory History: seasonal allergies Gastrointestinal History: Reports: GERD, Hiatal Hernia Genitourinary History: Reports: None, Renal Calculus [employer]UCKING [employer]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: Neurological History: Reports: MS, Seizure Other Neuro History: 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, occurred 6 years ago Psychiatric History: Reports: Anxiety, Depression Endocrine/Metabolic History: Reports: Diabetes, Type II Oncologic (Cancer) History: Reports: Malignant Melanoma Dermatologic History: Reports: Melanoma - Infectious Disease History Infectious Disease History: Reports: Influenza, Mononucleosis, Novel Coronavirus - Past Surgical History HEENT Surgical History: Reports: Oral Surgery Other HEENT Surgeries/Procedures: cancer on skin of face around nose Cardiovascular Surgical History: Reports: None GI Surgical History: Reports: Appendectomy, Bariatric Procedure, Cholecystectomy, EGD Other GI Surgeries/Procedures: SLEEVE procedure Female Surgical History: Reports: Section, Hysterectomy Endocrine Surgical History: Reports: None Neurological Surgical History: Reports: None Musculoskeletal Surgical History: Reports: Arthroscopic Knee Oncologic Surgical History: Reports: Other (See Below) Dermatological Surgical History: Reports: Skin Graft Social & Family History - Family History Family Medical History: No Pertinent Family History HEENT: Reports: Macular Degeneration Respiratory: Reports: Asthma GI: Reports: PUD OBGYN: Reports: None Neurological: Reports: Vertigo Oncologic: Reports: Bladder, Breast - Tobacco Use Tobacco Use Status *Q: Never Tobacco User Second Hand Smoke Exposure: No - Caffeine Use Caffeine Use: Reports: Coffee - Recreational Drug Use Recreational Drug Use: No - Living Situation & Occupation Living situation: Reports: , with Spouse 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 Denies: Diarrhea : Reports: No Symptoms Musculoskeletal: Reports: No Symptoms Skin: Reports: No Symptoms ED EXAM, GI/ABD - Physical Exam Exam: See Below Exam Limited By: No Limitations General Appearance: Alert, No Apparent Distress Ears: Normal External Exam Nose: Normal Inspection Head: Atraumatic, Normocephalic Neck: Normal Inspection Respiratory/Chest: No Respiratory Distress, Lungs Clear, Normal Breath Sounds Cardiovascular: Regular Rate, Rhythm, No Edema, No Murmur GI/Abdominal Exam: Soft, No Organomegaly, No Mass, Tender (Mild tenderness to the upper abdomen) Back Exam: Normal Inspection Extremities: Normal Inspection Neurological: Alert, Oriented, No Motor/Sensory Deficits Course - Vital Signs Last Recorded V/S: Last Vital Signs Temp 97.3 F 12/21/20 13:40 Pulse 70 12/21/20 13:40 Resp 16 12/21/20 13:40 BP 125/74 12/21/20 13:40 Pulse Ox 99 12/21/20 13:40 - Orders/Labs/Meds Orders: Active Orders 24 hr Category Date Time Status Peripheral IV Care [RC] . DIRECTED Care 12/21/20 14:02 Active Sodium Chloride 0.9% [Saline Flush] Med 12/21/20 14:02 Active 10 ml FLUSH ASDIRECTED PRN Sodium Chloride 0.9% [Saline Flush] Med 12/21/20 14:08 Active 10 ml FLUSH ONETIME PRN ED Antiemetic Medication Reflex [OM.PC] Stat Oth 12/21/20 14:02 Ordered Peripheral IV Insertion Adult [OM.PC] Stat Oth 12/21/20 14:02 Ordered Medication Orders Sodium Chloride (Sodium Chloride 0.9% 10 Ml Syringe) 10 ml FLUSH ASDIRECTED PRN PRN Reason: Keep Vein Open Last Admin: 12/21/20 14:18 Dose: 10 ml Documented by: CAROL Sodium Chloride (Sodium Chloride 0.9% 10 Ml Syringe) 10 ml FLUSH ONETIME PRN PRN Reason: IV FLUSH Last Admin: 12/21/20 15:01 Dose: 10 ml Documented by: CANDELARIO Labs: Laboratory Tests 12/21/20 12/21/20 12/21/20 Range/Units 14:30 14:30 14:30 WBC 3.87 L (3.98-10.04) K/mm3 RBC 4.17 (3.98-5.22) M/mm3 Hgb 10.6 L (11.2-15.7) gm/dl Hct 34.1 (34.1-44.9) % MCV 81.8 (79.4-94.8) fl MCH 25.4 L (25.6-32.2) pg MCHC 31.1 L (32.2-35.5) g/dl RDW Std Deviation 50.3 H (36.4-46.3) fL Plt Count 296 (182-369) K/mm3 MPV 9.3 L (9.4-12.3) fl Neut % (Auto) 40.3 (34.0-71.1) % Lymph % (Auto) 45.0 (19.3-51.7) % [place] % (Auto) 11.4 (4.7-12.5) % Eos % (Auto) 2.8 (0.7-5.8) Baso % (Auto) 0.5 (0.1-1.2) % Neut # (Auto) 1.56 (1.56-6.13) K/mm3 Lymph # (Auto) 1.74 (1.18-3.74) K/mm3 [place] # (Auto) 0.44 H (0.24-0.36) K/mm3 Eos # (Auto) 0.11 (0.04-0.36) K/mm3 Baso # (Auto) 0.02 (0.01-0.08) K/mm3 Sodium 146 H (136-145) mEq/L Potassium 3.8 (3.5-5.1) mEq/L Chloride 108 H (98-107) mEq/L Carbon Dioxide 26 (21-32) mEq/L Anion Gap 15.8 H (5-15) BUN 11 (7-18) mg/dL Creatinine 1.1 H (0.55-1.02) mg/dL Est Cr Clr Drug Dosing 54.01 mL/min Estimated GFR (MDRD) 53 (>60) mL/min BUN/Creatinine Ratio 10.0 L (14-18) Glucose 68 L (70-99) mg/dL Calcium 8.5 (8.5-10.1) mg/dL Total Bilirubin 0.2 (0.2-1.0) mg/dL AST 24 (15-37) U/L ALT 26 (14-59) U/L Alkaline Phosphatase 68 (46-116) U/L Total Protein 7.3 (6.4-8.2) g/dl Albumin 3.8 (3.4-5.0) g/dl Globulin 3.5 gm/dL Albumin/Globulin Ratio 1.1 (1-2) Lipase 279 (73-393) U/L HCG, Qual Positive H (NEGATIVE) HCG, Quant mIU/mL Urine Color (Yellow) Urine Appearance (Clear) Urine pH (5.0-8.0) Ur Specific [place] (1.005-1.030) Urine Protein (Negative) Urine Glucose (UA) (Negative) Urine Ketones (Negative) Urine Occult Blood (Negative) Urine Nitrite (Negative) Urine Bilirubin (Negative) Urine Urobilinogen (0.2-1.0) Ur Leukocyte Esterase (Negative) Urine RBC (0-5) /hpf Urine WBC (0-5) /hpf Ur Squamous Epith Cells (0-5) /hpf Urine Bacteria (FEW) /hpf Urine Mucus (FEW) /hpf 12/21/20 12/21/20 Range/Units 15:43 16:05 WBC (3.98-10.04) K/mm3 RBC (3.98-5.22) M/mm3 Hgb (11.2-15.7) gm/dl Hct (34.1-44.9) % MCV (79.4-94.8) fl MCH (25.6-32.2) pg MCHC (32.2-35.5) g/dl RDW Std Deviation (36.4-46.3) fL Plt Count (182-369) K/mm3 MPV (9.4-12.3) fl Neut % (Auto) (34.0-71.1) % Lymph % (Auto) (19.3-51.7) % [place] % (Auto) (4.7-12.5) % Eos % (Auto) (0.7-5.8) Baso % (Auto) (0.1-1.2) % Neut # (Auto) (1.56-6.13) K/mm3 Lymph # (Auto) (1.18-3.74) K/mm3 [place] # (Auto) (0.24-0.36) K/mm3 Eos # (Auto) (0.04-0.36) K/mm3 Baso # (Auto) (0.01-0.08) K/mm3 Sodium (136-145) mEq/L Potassium (3.5-5.1) mEq/L Chloride (98-107) mEq/L Carbon Dioxide (21-32) mEq/L Anion Gap (5-15) BUN (7-18) mg/dL Creatinine (0.55-1.02) mg/dL Est Cr Clr Drug Dosing mL/min Estimated GFR (MDRD) (>60) mL/min BUN/Creatinine Ratio (14-18) Glucose (70-99) mg/dL Calcium (8.5-10.1) mg/dL Total Bilirubin (0.2-1.0) mg/dL AST (15-37) U/L ALT (14-59) U/L Alkaline Phosphatase (46-116) U/L Total Protein (6.4-8.2) g/dl Albumin (3.4-5.0) g/dl Globulin gm/dL Albumin/Globulin Ratio (1-2) Lipase (73-393) U/L HCG, Qual (NEGATIVE) HCG, Quant 2.0 mIU/mL Urine Color Yellow (Yellow) Urine Appearance Clear (Clear) Urine pH 6.5 (5.0-8.0) Ur Specific [place] 1.015 (1.005-1.030) Urine Protein Negative (Negative) Urine Glucose (UA) Negative (Negative) Urine Ketones Negative (Negative) Urine Occult Blood Trace-intact H (Negative) Urine Nitrite Negative (Negative) Urine Bilirubin Negative (Negative) Urine Urobilinogen 0.2 (0.2-1.0) Ur Leukocyte Esterase Negative (Negative) Urine RBC 0-5 (0-5) /hpf Urine WBC 0-5 (0-5) /hpf Ur Squamous Epith Cells 5-10 H (0-5) /hpf Urine Bacteria Few (FEW) /hpf Urine Mucus Few (FEW) /hpf Meds: Medications Generic Name Dose Route Start Last Admin Trade Name Freq PRN Reason Stop Dose Admin Sodium Chloride 10 ml 12/21/20 14:02 12/21/20 14:18 Sodium Chloride 0.9% 10 Ml Syringe FLUSH 10 ml ASDIRECTED PRN Administration Keep Vein Open Sodium Chloride 10 ml 12/21/20 14:08 12/21/20 15:01 Sodium Chloride 0.9% 10 Ml Syringe FLUSH 10 ml ONETIME PRN Administration IV FLUSH Discontinued Medications Generic Name Dose Route Start Last Admin Trade Name Philippe PRN Reason Stop Dose Admin Diatrizoate Meglum/Diatrizoate Sod 120 ml 12/21/20 14:08 12/21/20 15:00 Diatrizoate Meglumine/Diatrizoate Sodium 37% 120 Ml Bottle PO 12/21/20 14:09 30 ml ONETIME ONE Administration Fentanyl 100 mcg 12/21/20 15:32 12/21/20 16:10 Fentanyl 100 Mcg/2 Ml Sdv IVPUSH 12/21/20 15:33 100 mcg ONETIME ONE Administration Hydromorphone HCl 1 mg 12/21/20 14:04 12/21/20 14:19 Hydromorphone 1 Mg/Ml Syringe IVPUSH 12/21/20 14:05 1 mg ONETIME ONE Administration Sodium Chloride 1,000 mls @ 1,000 mls/hr 12/21/20 14:02 12/21/20 14:18 Normal Saline IV 12/21/20 15:01 1,000 mls/hr .BOLUS STA Administration Iopamidol 100 ml 12/21/20 14:08 12/21/20 15:00 Iopamidol 612 Mg/Ml 100 Ml Bottle IVPUSH 12/21/20 14:09 100 ml ONETIME ONE Administration Ondansetron HCl 4 mg 12/21/20 14:02 12/21/20 14:18 Ondansetron 4 Mg/2 Ml Sdv IVPUSH 12/21/20 14:03 4 mg ONETIME ONE Administration - Re-Assessments/Exams Free Text/Narrative Re-Assessment/Exam: 12/21/20 15:55 I ordered an IV NS 1L bolus, dilaudid 1mg IV, zofran 4mg IV, labs, UA and a CT of her abdomen and pelvis. Her WBC was a little low at 3.87. Her Hgb was low at 10.6. Her Na was a little elevated at 146. Her anion gap was elevated at 15.8. Her creatinine was slightly elevated at 1.1. Her glucose is low at 68. Her lipase was normal. Her HCG is positive but looking through her records she did have a hysterectomy. Her CT shows findings believed to be fairly stable from prior study. Mild increased stool within the colon. Nothing acute is otherwise seen on CT study of the abdomen and pelvis. 12/21/20 17:15 Her quant HCG was 2 and is nothing to worry about. She feels a little better but her back is still hurting. I am not sure if this is related to the heat stroke and hypokalemia she had in [place]. It appears her abdomen and pelvis have nothing acute. I will get her on a muscle relaxer and have her follow up with her provider this week. Departure - Departure Time of Disposition: 17:20 Disposition: Home, Self-Care 01 Condition: Good Clinical Impression: Mid back pain Abdominal pain Qualifiers: Abdominal location: upper abdomen, unspecified Qualified Code(s): R10.10 - Upper abdominal pain, unspecified - Discharge Information *PRESCRIPTION DRUG MONITORING PROGRAM REVIEWED*: Not Applicable *COPY OF PRESCRIPTION DRUG MONITORING REPORT IN PATIENT SUMMER: Not Applicable Prescriptions: Cyclobenzaprine [Flexeril] 10 mg PO TID PRN #20 tab PRN Reason: Pain Referrals: Flavia Foote PA-C [Primary Care Provider] - 3 Days Forms: ED Department Discharge Additional Instructions: Take tylenol or motrin as needed for pain. Take the flexeril every 8 hours as needed for back pain. Follow up with your provider within a few days. Please return if you are worse. Sepsis Event Note (ED) - Evaluation Sepsis Screening Result: No Definite Risk - Focused Exam Vital Signs: Vital Signs Temp Pulse Resp BP Pulse Ox 12/21/20 13:40 97.3 F 70 16 125/74 99 - My Orders Last 24 Hours: My Active Orders 12/21/20 14:02 Peripheral IV Care [RC] . DIRECTED Sodium Chloride 0.9% [Saline Flush] 10 ml FLUSH ASDIRECTED PRN ED Antiemetic Medication Reflex [OM.PC] Stat Peripheral IV Insertion Adult [OM.PC] Stat 12/21/20 14:08 Sodium Chloride 0.9% [Saline Flush] 10 ml FLUSH ONETIME PRN - Assessment/Plan Last 24 Hours: My Active Orders 12/21/20 14:02 Peripheral IV Care [RC] . DIRECTED Sodium Chloride 0.9% [Saline Flush] 10 ml FLUSH ASDIRECTED PRN ED Antiemetic Medication Reflex [OM.PC] Stat Peripheral IV Insertion Adult [OM.PC] Stat 12/21/20 14:08 Sodium Chloride 0.9% [Saline Flush] 10 ml FLUSH ONETIME PRN
[2020-12-21] MEDS: fentaNYL 100 MCG/2 ML SDV IVPUSH ONE (16:10)
== END 2020-12-21 17:35 | disposition home or self-care (01) ==
LOC: JD.ED 13:17
DX: R10.10 Upper abdominal pain, unspecified (principal); R10.13 Epigastric pain; M54.6 Pain in thoracic spine; R11.2 Nausea with vomiting, unspecified; I10 Essential (primary) hypertension; E11.9 Type 2 diabetes mellitus without complications; Z88.5 Allergy status to narcotic agent; Z79.82 Long term (current) use of aspirin; Z91.040 Latex allergy status; Z79.899 Other long term (current) drug therapy; Z90.710 Acquired absence of both cervix and uterus
CPT/HCPCS: 36415; 74177; 80053; 81001; 83690; 84702; 84703; 85025; 96374; 96375; 99284; J1170; J2405; J3010; J7030; Q9963; Q9967

== ENCOUNTER 2020-12-30 09:29 | Emergency (ER) | payer BC ==
[2020-12-30 09:44] VITALS: BP 127/81; PULSE 71
[2020-12-30] MEDS ORDERED: Sodium Chloride 0.9% 1,000 ML IV ONE (10:26)
[2020-12-30] MEDS ORDERED: Ondansetron 4 MG/2 ML SDV IVPUSH ONE (11:21)
[2020-12-30] MEDS ORDERED: HYDROmorphone 0.5 MG/0.5 ML Syringe IVPUSH ONE ×2 (11:21→13:00)
[2020-12-30] MEDS ORDERED: Sodium Chloride 0.9% 10 ML Syringe FLUSH PRN (11:56)
[2020-12-30] MEDS ORDERED: Iopamidol 612 MG/ML 100 ML Bottle IVPUSH ONE (11:56)
--- NOTE | 2020-12-30 12:42 | CT ---
CT abdomen and pelvis (without and with intravenous contrast) Technique: Multiple axial sections were obtained from above the kidneys inferiorly through the pubic symphysis. Intravenous and oral contrast were not utilized. 40-second images were obtained following intravenous contrast from above the kidneys inferiorly to the iliac crest. Post-contrast 5-minute delayed images were also obtained from above the kidneys inferiorly through the pubic symphysis. Reconstructed coronal and sagittal images were also obtained. Comparison: Prior CT abdomen and pelvis exam 12/21/20. Findings: Kidneys shows mild areas of medullary calcifications compatible with mild medullary sponge kidney. Nonobstructing stone is noted within the right kidney measuring 5 mm. No ureteral dilatation is seen. No ureteral calcifications are seen. Kidneys show symmetric contrast enhancement. Very minimal low density area is noted within the right kidney measuring 5 mm. This is nonspecific regarding Hounsfield unit measurements but, statistically, most likely represents a small cyst. Delayed images show contrast within the ureters as well as within the bladder. No filling defects are seen within the collecting systems of either kidney. Bladder shows no abnormal calcifications. Visualized lung bases show nothing acute. Visualized portions of the liver show no discrete abnormality. Surgical clips are seen from prior cholecystectomy. Prior stomach surgery is noted. Spleen size is normal. Adrenal glands show no nodule. Pancreas appears within normal limits. Abdominal aorta shows no aneurysm. No retroperitoneal adenopathy or mesenteric abnormalities are seen. Numerous surgical clips are seen within the right lower abdomen. No discrete pelvic mass or adenopathy is seen. Increased stool is scattered throughout the colon. Bone window settings were reviewed which show degenerative change within the sacroiliac joints. No acute osseous abnormality is appreciated. Impression: 1. Findings compatible with mild medullary sponge kidney. Small nonobstructing stone is noted within the right kidney measuring 5 mm. No ureteral dilatation or ureteral stone is seen. 2. Small low density finding within the right kidney which has nonspecific Hounsfield unit measurements but most likely represents a small 5 mm cyst. 3. Prior stomach surgery. Previous surgery is noted within the right lower quadrant. Previous hysterectomy is noted. 4. Mild increased stool throughout the colon. Diagnostic code #2
--- NOTE | 2020-12-30 13:07 | EDM.PDOC ---
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 She reports that on Sunday, she had symptoms of urinary tract infection including urinary frequency and a small amount of blood in her urine. This resolved, however, this morning the frequency returned and she started passing blood clots in the toilet. She has a history of a total hysterectomy 2 years ago. She was seen in this emergency department a week ago for abdominal pain and a test was done routinely prior to CT scan. It came back positive, however hCG was only 2.0. She denies any fever or chills. States she does feel nauseous but has had no vomiting. Back Pain Score (Numeric/FACES): 8 - Related Data Allergies Allergy/AdvReac Type Severity Reaction Status Date / Time codeine Allergy Rash Verified 12/30/20 09:44 latex Allergy Rash Verified 12/30/20 09:44 Home Meds: Home Meds PARoxetine HCL [Paroxetine HCl] 40 mg PO DAILY 01/12/16 [History] Pantoprazole Sodium 40 mg PO DAILY 01/12/16 [History] Ondansetron [Zofran ODT] 4 mg PO Q8H PRN #15 tab.dis 07/31/20 [Rx] dexAMETHasone [Decadron] 6 mg PO DAILY 10 Days #10 tablet 07/31/20 [Rx] Montelukast [Singulair] 10 mg PO BEDTIME 08/05/20 [History] Topiramate [Topamax] 50 mg PO BEDTIME 08/05/20 [History] buPROPion [buPROPion XL] 150 mg PO DAILY 08/05/20 [History] Aspirin 81 mg PO DAILY #30 tab.chew 08/07/20 [Rx] Promethazine [Phenergan] 25 mg PO Q6H PRN #8 tab 08/07/20 [Rx] Cyclobenzaprine [Flexeril] 10 mg PO TID PRN #20 tab 12/21/20 [Rx] Hydrocodone/Acetaminophen [Hydrocodone-Acetamin 5-325 mg] 1 - 2 each PO Q6H PRN #15 tablet 12/21/20 [Rx] Hydrocodone/Acetaminophen [Hydrocodone-Acetamin 5-325 mg] 1 each PO Q4H PRN #12 tablet 12/30/20 [Rx] Phenazopyridine HCl [Pyridium] 200 mg PO Q8H PRN 2 Days #6 tablet 12/30/20 [Rx] Sulfamethoxazole/Trimethoprim [Septra DS] 1 each PO BID 7 Days #14 tab 12/30/20 [Rx] Past Medical History - Past Health History Medical/Surgical History: Denies Medical/Surgical History HEENT History: Reports: Allergic Rhinitis, Impaired Vision Other HEENT History: wears glasses Cardiovascular History: Reports: Hypertension Respiratory History: Reports: Other (See Below) Other Respiratory History: seasonal allergies Gastrointestinal History: Reports: GERD, Hiatal Hernia Genitourinary History: Reports: None, Renal Calculus 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: Neurological History: Reports: MS, Seizure Other Neuro History: 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, occurred 6 years ago Psychiatric History: Reports: Anxiety, Depression Endocrine/Metabolic History: Reports: Diabetes, Type II Oncologic (Cancer) History: Reports: Malignant Melanoma Dermatologic History: Reports: Melanoma - Infectious Disease History Infectious Disease History: Reports: Influenza, Mononucleosis, Novel Coronavirus - Past Surgical History HEENT Surgical History: Reports: Oral Surgery Other HEENT Surgeries/Procedures: cancer on skin of face around nose Cardiovascular Surgical History: Reports: None GI Surgical History: Reports: Appendectomy, Bariatric Procedure, Cholecystectomy, EGD Other GI Surgeries/Procedures: SLEEVE procedure Female Surgical History: Reports: Section, Hysterectomy Endocrine Surgical History: Reports: None Neurological Surgical History: Reports: None Musculoskeletal Surgical History: Reports: Arthroscopic Knee Oncologic Surgical History: Reports: Other (See Below) Dermatological Surgical History: Reports: Skin Graft Social & Family History - Family History Family Medical History: No Pertinent Family History HEENT: Reports: Macular Degeneration Respiratory: Reports: Asthma GI: Reports: PUD OBGYN: Reports: None Neurological: Reports: Vertigo Oncologic: Reports: Bladder, Breast - Tobacco Use Tobacco Use Status *Q: Current Every Day Tobacco User Years of Tobacco use: 10 Packs/Tins Daily: 1 - Caffeine Use Caffeine Use: Reports: Coffee - Living Situation & Occupation Living situation: Reports: , with Spouse 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 ED EXAM, RENAL/ - Physical Exam Exam: See Below Exam Limited By: No Limitations General Appearance: Alert, WD/WN, No Apparent Distress Respiratory/Chest: No Respiratory Distress, Lungs Clear, Normal Breath Sounds, No Accessory Muscle Use, Chest Non-Tender Cardiovascular: Normal Peripheral Pulses, Regular Rate, Rhythm, No Edema, No Gallop, No JVD, No Murmur, No Rub GI/Abdominal: Normal Bowel Sounds, Soft, Non-Tender, No Organomegaly, No Distention, No Abnormal Bruit, No Mass (Female) Exam: Normal External Exam, Normal Speculum Exam. No: Vaginal Bleeding, Vaginal Discharge, Vaginal Lesions, Vaginal Tears Back Exam: Normal Inspection, Paraspinal Tenderness (thoughout bilateral low back) Neurological: Alert, Oriented, CN II-XII Intact, Normal Cognition, Normal Gait, Normal Reflexes, No Motor/Sensory Deficits Psychiatric: Normal Affect, Normal Mood Course - Vital Signs Last Recorded V/S: Last Vital Signs Temp 97.3 F 12/30/20 09:42 Pulse 71 12/30/20 09:42 Resp 18 12/30/20 09:42 BP 127/81 12/30/20 09:42 Pulse Ox 97 12/30/20 09:42 - Orders/Labs/Meds Orders: Active Orders 24 hr Category Date Time Status CULTURE URINE [MREF] Stat Lab 12/30/20 13:05 Received Labs: Laboratory Tests 12/30/20 12/30/20 12/30/20 Range/Units 09:55 09:56 09:56 WBC 6.04 (3.98-10.04) K/mm3 RBC 4.01 (3.98-5.22) M/mm3 Hgb 10.2 L (11.2-15.7) gm/dl Hct 32.9 L (34.1-44.9) % MCV 82.0 (79.4-94.8) fl MCH 25.4 L (25.6-32.2) pg MCHC 31.0 L (32.2-35.5) g/dl RDW Std Deviation 50.3 H (36.4-46.3) fL Plt Count 298 (182-369) K/mm3 MPV 8.8 L (9.4-12.3) fl Neut % (Auto) 59.9 (34.0-71.1) % Lymph % (Auto) 30.0 (19.3-51.7) % [place] % (Auto) 7.9 (4.7-12.5) % Eos % (Auto) 1.7 (0.7-5.8) Baso % (Auto) 0.3 (0.1-1.2) % Neut # (Auto) 3.62 (1.56-6.13) K/mm3 Lymph # (Auto) 1.81 (1.18-3.74) K/mm3 [place] # (Auto) 0.48 H (0.24-0.36) K/mm3 Eos # (Auto) 0.10 (0.04-0.36) K/mm3 Baso # (Auto) 0.02 (0.01-0.08) K/mm3 Sodium 143 (136-145) mEq/L Potassium 3.8 (3.5-5.1) mEq/L Chloride 107 (98-107) mEq/L Carbon Dioxide 25 (21-32) mEq/L Anion Gap 14.8 (5-15) BUN 12 (7-18) mg/dL Creatinine 1.1 H (0.55-1.02) mg/dL Est Cr Clr Drug Dosing TNP Estimated GFR (MDRD) 53 (>60) mL/min BUN/Creatinine Ratio 10.9 L (14-18) Glucose 115 H (70-99) mg/dL Calcium 8.3 L (8.5-10.1) mg/dL Total Bilirubin 0.3 (0.2-1.0) mg/dL AST 23 (15-37) U/L ALT 24 (14-59) U/L Alkaline Phosphatase 62 (46-116) U/L Total Protein 7.0 (6.4-8.2) g/dl Albumin 3.5 (3.4-5.0) g/dl Globulin 3.5 gm/dL Albumin/Globulin Ratio 1.0 (1-2) HCG, Qual (NEGATIVE) Urine Color Yellow (Yellow) Urine Appearance Clear (Clear) Urine pH 7.0 (5.0-8.0) Ur Specific [place] > or = 1.030 (1.005-1.030) Urine Protein 3+ H (Negative) Urine Glucose (UA) Negative (Negative) Urine Ketones Negative (Negative) Urine Occult Blood 3+ H (Negative) Urine Nitrite Negative (Negative) Urine Bilirubin Negative (Negative) Urine Urobilinogen 0.2 (0.2-1.0) Ur Leukocyte Esterase Negative (Negative) Urine RBC Too numerous to cnt H (0-5) /hpf Urine WBC 5-10 H (0-5) /hpf Ur Epithelial Cells 0-5 (0-5) /hpf Urine Bacteria Few (FEW) /hpf Urine Mucus Not seen (FEW) /hpf 12/30/20 Range/Units 10:38 WBC (3.98-10.04) K/mm3 RBC (3.98-5.22) M/mm3 Hgb (11.2-15.7) gm/dl Hct (34.1-44.9) % MCV (79.4-94.8) fl MCH (25.6-32.2) pg MCHC (32.2-35.5) g/dl RDW Std Deviation (36.4-46.3) fL Plt Count (182-369) K/mm3 MPV (9.4-12.3) fl Neut % (Auto) (34.0-71.1) % Lymph % (Auto) (19.3-51.7) % [place] % (Auto) (4.7-12.5) % Eos % (Auto) (0.7-5.8) Baso % (Auto) (0.1-1.2) % Neut # (Auto) (1.56-6.13) K/mm3 Lymph # (Auto) (1.18-3.74) K/mm3 [place] # (Auto) (0.24-0.36) K/mm3 Eos # (Auto) (0.04-0.36) K/mm3 Baso # (Auto) (0.01-0.08) K/mm3 Sodium (136-145) mEq/L Potassium (3.5-5.1) mEq/L Chloride (98-107) mEq/L Carbon Dioxide (21-32) mEq/L Anion Gap (5-15) BUN (7-18) mg/dL Creatinine (0.55-1.02) mg/dL Est Cr Clr Drug Dosing Estimated GFR (MDRD) (>60) mL/min BUN/Creatinine Ratio (14-18) Glucose (70-99) mg/dL Calcium (8.5-10.1) mg/dL Total Bilirubin (0.2-1.0) mg/dL AST (15-37) U/L ALT (14-59) U/L Alkaline Phosphatase (46-116) U/L Total Protein (6.4-8.2) g/dl Albumin (3.4-5.0) g/dl Globulin gm/dL Albumin/Globulin Ratio (1-2) HCG, Qual Negative (NEGATIVE) Urine Color (Yellow) Urine Appearance (Clear) Urine pH (5.0-8.0) Ur Specific [place] (1.005-1.030) Urine Protein (Negative) Urine Glucose (UA) (Negative) Urine Ketones (Negative) Urine Occult Blood (Negative) Urine Nitrite (Negative) Urine Bilirubin (Negative) Urine Urobilinogen (0.2-1.0) Ur Leukocyte Esterase (Negative) Urine RBC (0-5) /hpf Urine WBC (0-5) /hpf Ur Epithelial Cells (0-5) /hpf Urine Bacteria (FEW) /hpf Urine Mucus (FEW) /hpf Meds: Medications Discontinued Medications Generic Name Dose Route Start Last Admin Trade Name Freq PRN Reason Stop Dose Admin Hydromorphone HCl 0.5 mg 12/30/20 11:21 12/30/20 11:38 Hydromorphone 0.5 Mg/0.5 Ml Syringe IVPUSH 12/30/20 11:22 0.5 mg ONETIME ONE Administration Hydromorphone HCl 0.5 mg 12/30/20 13:00 12/30/20 13:22 Hydromorphone 0.5 Mg/0.5 Ml Syringe IVPUSH 12/30/20 13:01 0.5 mg ONETIME ONE Administration Sodium Chloride 1,000 mls @ 999 mls/hr 12/30/20 10:26 12/30/20 10:36 Normal Saline IV 12/30/20 11:26 999 mls/hr ONETIME ONE Administration Iopamidol 100 ml 12/30/20 11:56 12/30/20 12:06 Iopamidol 612 Mg/Ml 100 Ml Bottle IVPUSH 12/30/20 11:57 100 ml ONETIME ONE Administration Ondansetron HCl 4 mg 12/30/20 11:21 12/30/20 11:39 Ondansetron 4 Mg/2 Ml Sdv IVPUSH 12/30/20 11:22 4 mg ONETIME ONE Administration Sodium Chloride 10 ml 12/30/20 11:56 12/30/20 12:06 Sodium Chloride 0.9% 10 Ml Syringe FLUSH 10 ml ONETIME PRN Administration IV FLUSH - Re-Assessments/Exams Free Text/Narrative Re-Assessment/Exam: Patient is a 50-year-old female presenting to the emergency department with complaints of passing blood, unknown if it is from the urethra of the vagina, pelvic cramping, and low back pain. Standing order labs were ordered by nursing staff. On exam, patient does have mild tenderness suprapubically as well as some generalized low back tenderness. I will have her moved to the gynecologic room for pelvic exam. I will give her Zofran 4 mg IV as well as Dilaudid 0.5 mg IV. 12/30/20 1200 Hematology significant for hemoglobin low 10.2, was otherwise unremarkable. Urinalysis was negative for infection but did show gross hematuria with 3+ occult blood and RBCs too numerous to count, as well as 5-10 WBCs. On exam, there was no blood noted in the vagina, therefore the clots she was passing are from the urethra. I have ordered CT scan of the abdomen pelvis with and without IV contrast. 12/30/20 13:18 CT scan of the abdomen pelvis impression as follows: 1. Findings compatible with mild medullary sponge kidney. Small nonobstructing stone is noted within the right kidney measuring 5 mm. No ureteral dilatation or ureteral stone is seen. 2. Small low-density finding within the right kidney which is nonspecific Hounsfield unit measurements but most likely represents a small 5 mm cyst. 3. Prior stomach surgery. Previous surgery is noted within the right lower quadrant. Previous hysterectomy is noted. 4. Mild increased stool throughout the colon. When I reviewed the CT, it appeared that there was some mild bladder wall thickening, however radiologist did not comment on this. Case was discussed with the [place]rolog[place] on[place] at [facility] [place] He recommended that we treat empirically with antibiotics for 7 days. Recommended Septra. They will call her today to set up an appointment for cystoscopy. I also write for hydrocodone with Tylenol for pain as well as Pyridium. Discussed return precautions. Discharge instructions as documented. Departure - Departure Time of Disposition: 13:18 Disposition: Home, Self-Care 01 Condition: Good Clinical Impression: Gross hematuria - Discharge Information *PRESCRIPTION DRUG MONITORING PROGRAM REVIEWED*: Yes *COPY OF PRESCRIPTION DRUG MONITORING REPORT IN PATIENT SUMMER: No Prescriptions: Hydrocodone/Acetaminophen [Hydrocodone-Acetamin 5-325 mg] 1 each PO Q4H PRN #12 tablet PRN Reason: Pain Phenazopyridine HCl [Pyridium] 200 mg PO Q8H PRN 2 Days #6 tablet PRN Reason: Dysuria Sulfamethoxazole/Trimethoprim [Septra DS] 1 each PO BID 7 Days #14 tab Instructions: Hematuria, Adult Referrals: Flavia Foote PA-C [Primary Care Provider] - Forms: ED Department Discharge, ED Return to Work/School Form Additional Instructions: You were seen in the emergency department today for blood in your urine, back pain, and pelvic pain. Work-up included blood work, urinalysis, and CT scan your abdomen pelvis. Results of work-up showed blood in your urine but were otherwise overall normal. Your case was discussed with Dr. Oleary, the urologist at [facility]. He recommend treating with antibiotics for possible urinary tract infection. They will call you to schedule a follow-up for cystoscopy in the near future. You have been provided with Pyridium which you may try for the bladder pain as well as hydrocodone with Tylenol for pain. Uses only as p rescribed. Return to ER for any new or worsening symptoms. Sepsis Event Note (ED) - Evaluation Sepsis Screening Result: No Definite Risk - Focused Exam Vital Signs: Vital Signs Temp Pulse Resp BP Pulse Ox 12/30/20 09:42 97.3 F 71 18 127/81 97 - My Orders Last 24 Hours: My Active Orders 12/30/20 13:05 CULTURE URINE [MREF] Stat - Assessment/Plan Last 24 Hours: My Active Orders 12/30/20 13:05 CULTURE URINE [MREF] Stat
== END 2020-12-30 13:39 | disposition home or self-care (01) ==
LOC: JD.ED 09:29
DX: R31.0 Gross hematuria (principal); I10 Essential (primary) hypertension; K21.9 Gastro-esophageal reflux disease without esophagitis; E11.9 Type 2 diabetes mellitus without complications; Z72.0 Tobacco use; Z88.5 Allergy status to narcotic agent; Z91.040 Latex allergy status; Z79.899 Other long term (current) drug therapy; Z79.82 Long term (current) use of aspirin
CPT/HCPCS: 36415; 74178; 80053; 81001; 84703; 85025; 87086; 96374; 96375; 96376; 99284; J1170; J2405; J7030; Q9967; 87077

== ENCOUNTER 2021-08-23 18:02 | Emergency (ER) | payer BC ==
[2021-08-23 18:41] VITALS: BP 100/71; PULSE 105
== END 2021-08-23 19:45 | disposition home or self-care (01) ==
LOC: JD.ED 18:02
DX: F10.20 Alcohol dependence, uncomplicated (principal); E11.9 Type 2 diabetes mellitus without complications; E66.9 Obesity, unspecified; K21.9 Gastro-esophageal reflux disease without esophagitis; F41.9 Anxiety disorder, unspecified; F32.A Depression, unspecified; Z79.899 Other long term (current) drug therapy; Z79.84 Long term (current) use of oral hypoglycemic drugs; Z88.5 Allergy status to narcotic agent; Z91.040 Latex allergy status
CPT/HCPCS: 99283

== ENCOUNTER 2022-04-11 10:45 | Emergency (ER) | payer OTHER, BC ==
[2022-04-11] MEDS ORDERED: Ondansetron 4 MG/2 ML SDV IVPUSH ONE (11:33)
[2022-04-11] MEDS ORDERED: HYDROmorphone 0.5 MG/0.5 ML Syringe IVPUSH ONE (11:33)
[2022-04-11] MEDS ORDERED: diphenhydrAMINE 50 MG/ML SDV IVPUSH ONE (11:33)
[2022-04-11] MEDS ORDERED: HYDROmorphone 1 MG/ML Syringe IM ONE (12:27)
[2022-04-11] MEDS ORDERED: Ketorolac 30 MG/ML SDV IM ONE (12:27)
[2022-04-11] MEDS ORDERED: Ondansetron 4 MG Tab.DIS PO ONE (12:28)
[2022-04-11] MEDS ORDERED: diphenhydrAMINE 50 MG/ML SDV IM ONE (12:28)
[2022-04-11 14:26] VITALS: BP 134/87; PULSE 76
== END 2022-04-11 14:23 | disposition home or self-care (01) ==
LOC: JD.ED 10:45
DX: S09.90XA Unspecified injury of head, initial encounter (principal); I10 Essential (primary) hypertension; E11.9 Type 2 diabetes mellitus without complications; F17.210 Nicotine dependence, cigarettes, uncomplicated; E66.9 Obesity, unspecified; Z68.28 Body mass index [BMI] 28.0-28.9, adult; Z88.5 Allergy status to narcotic agent; Z91.040 Latex allergy status; Z79.899 Other long term (current) drug therapy; Z90.49 Acquired absence of other specified parts of digestive tract; Z90.710 Acquired absence of both cervix and uterus; W01.10XA Fall on same level from slipping, tripping and stumbling with subsequent striking against unspecified object, initial encounter
CPT/HCPCS: 36415; 70450; 80053; 85025; 96372; 99284; A9270; J1170; J1200; J1885

== ENCOUNTER 2022-04-12 14:27 | Emergency (ER) | payer OTHER, BC ==
[2022-04-12 14:50] VITALS: BP 154/102; PULSE 96
== END 2022-04-12 17:49 | disposition home or self-care (01) ==
LOC: JD.ED 14:27
DX: S09.90XA Unspecified injury of head, initial encounter (principal); R56.9 Unspecified convulsions; I10 Essential (primary) hypertension; K21.9 Gastro-esophageal reflux disease without esophagitis; E11.9 Type 2 diabetes mellitus without complications; E66.9 Obesity, unspecified; Z68.27 Body mass index [BMI] 27.0-27.9, adult; Z88.5 Allergy status to narcotic agent; Z91.040 Latex allergy status; Z79.899 Other long term (current) drug therapy; W22.8XXA Striking against or struck by other objects, initial encounter
CPT/HCPCS: 70551; 70551-26; 99284

== ENCOUNTER 2022-04-21 10:39 | Emergency (ER) | payer OTHER, BC ==
[2022-04-21] MEDS ORDERED: levETIRAcetam 500 MG in Sodium Chloride 0.9% 100 ML IV ONE (10:59)
[2022-04-21] MEDS ORDERED: HYDROmorphone 0.5 MG/0.5 ML Syringe IVPUSH ONE (10:59)
[2022-04-21] MEDS ORDERED: Sodium Chloride 0.9% 10 ML Syringe FLUSH PRN (10:59)
[2022-04-21 12:06] LABS: ESTIMATED GFR 90 mL/min (>60)
[2022-04-21 13:39] VITALS: BP 94/70; PULSE 90
== END 2022-04-21 13:37 | disposition home or self-care (01) ==
LOC: JD.ED 10:39
DX: R56.9 Unspecified convulsions (principal); G35 Multiple sclerosis; I10 Essential (primary) hypertension; K21.9 Gastro-esophageal reflux disease without esophagitis; E11.9 Type 2 diabetes mellitus without complications; E66.9 Obesity, unspecified; F17.210 Nicotine dependence, cigarettes, uncomplicated; Z68.30 Body mass index [BMI] 30.0-30.9, adult; Z88.5 Allergy status to narcotic agent; Z91.040 Latex allergy status; Z79.899 Other long term (current) drug therapy; Z86.16 Personal history of COVID-19
CPT/HCPCS: 36415; 70450; 80053; 85025; 96374; 96375; 99285; J1170; J1953; J3490

== ENCOUNTER 2022-11-23 16:47 | Emergency (ER) | payer BC, OTHER ==
[2022-11-23] MEDS ORDERED: 50% Dextrose in Water 50 ML Syringe ONE (17:03)
[2022-11-23 18:50] VITALS: BP 110/74; PULSE 84
[2022-11-23 21:10] LABS: BASOPHILS ABSOLUTE AUTO 0.04 K/mm3 (0.01-0.08); BASOPHILS PERCENT AUTO 0.5 % (0.1-1.2); EOSINOPHILS ABSOLUTE AUTO 0.18 K/mm3 (0.04-0.36); EOSINOPHILS PERCENT AUTO 2.4 (0.7-5.8); HEMATOCRIT 37.6 % (34.1-44.9); HEMOGLOBIN 12.2 gm/dl (11.2-15.7); IMMATURE GRAN ABSOLUTE AUTO 0.01 K/mm3 (0.00-0.10); IMMATURE GRAN PERCENT AUTO 0.1 % (<=1.0); LYMPHOCYTES ABSOLUTE AUTO 4.34 K/mm3 (1.18-3.74); LYMPHOCYTES PERCENT AUTO 58.2 % (19.3-51.7); MEAN CORPUSCULAR HEMOGLOBIN 26.8 pg (25.6-32.2); MEAN CORPUSCULAR HGB CONC 32.4 g/dl (32.2-35.5); MEAN PLATELET VOLUME 10.1 fl (9.4-12.3); MONOCYTES ABSOLUTE AUTO 0.69 K/mm3 (0.24-0.36); MONOCYTES PERCENT AUTO 9.2 % (4.7-12.5); NEUTROPHILS PERCENT AUTO 29.6 % (34.0-71.1); RED BLOOD CELL COUNT 4.56 M/mm3 (3.98-5.22); WHITE BLOOD CELL COUNT,WBC 7.46 K/mm3 (3.98-10.04)
[2022-11-23 21:16] LABS: A/G RATIO 1.2 (1-2); ALBUMIN 4.1 g/dl (3.4-5.0); ANION GAP 22.7 (5-15); BILIRUBIN TOTAL 0.2 mg/dL (0.2-1.0); BUN/CREATININE RATIO 9.2 (14-18); CALCIUM 9.5 mg/dL (8.5-10.1); CREATININE 1.2 mg/dL (0.55-1.02); EST CRCL DRUG DOSING (CG) 52.5 mL/min; POTASSIUM,K 2.7 mEq/L (3.5-5.1); PROTEIN TOTAL,TP 7.6 g/dl (6.4-8.2)
[2022-11-23 21:24] LABS: MEAN CORPUSCULAR VOLUME 82.5 fl (79.4-94.8); PLATELET COUNT,PLT 374 K/mm3 (182-369)
== END 2022-11-23 19:19 | disposition home or self-care (01) ==
LOC: JD.ED 16:47
DX: E11.649 Type 2 diabetes mellitus with hypoglycemia without coma (principal); I10 Essential (primary) hypertension; K21.9 Gastro-esophageal reflux disease without esophagitis; E66.9 Obesity, unspecified; Z68.24 Body mass index [BMI] 24.0-24.9, adult; Z86.16 Personal history of COVID-19; Z88.5 Allergy status to narcotic agent; Z91.040 Latex allergy status; Z79.899 Other long term (current) drug therapy
CPT/HCPCS: 36415; 70450; 70450-26; 80053; 82947; 85025; 93005; 93010; 99283; 99285

== ENCOUNTER 2023-06-01 15:04 | Emergency (ER) | payer BC, OTHER ==
[2023-06-01 17:05] LABS: BASOPHILS PERCENT AUTO 0.8 % (0.0-1.0); EOSINOPHILS ABSOLUTE AUTO 0.3 K/mm3 (0.0-0.4); EOSINOPHILS PERCENT AUTO 4.7 % (0.0-6.0); HEMATOCRIT 41.2 % (37.0-47.0); HEMOGLOBIN 13.3 gm/dl (12.0-16.0); IMMATURE GRAN ABSOLUTE AUTO 0.09 K/mm3 (0.00-0.05); IMMATURE GRAN PERCENT AUTO 1.7 % (0.0-0.4); LYMPHOCYTES ABSOLUTE AUTO 1.9 K/mm3 (1.0-4.8); LYMPHOCYTES PERCENT AUTO 35.5 % (24.0-44.0); MEAN CORPUSCULAR HEMOGLOBIN 30.5 pg (28.0-32.0); MEAN CORPUSCULAR HGB CONC 32.3 g/dl (32.0-36.0); MEAN CORPUSCULAR VOLUME 94.5 fl (83.0-99.0); MEAN PLATELET VOLUME 8.5 fl (9.4-12.3); MONOCYTES ABSOLUTE AUTO 0.3 K/mm3 (0.0-0.8); NEUTROPHILS ABSOLUTE AUTO 2.7 K/mm3 (1.8-7.7); NEUTROPHILS PERCENT AUTO 51.3 % (41.0-71.0); PLATELET COUNT,PLT 268 K/mm3 (150-400); RED BLOOD CELL COUNT 4.36 M/mm3 (4.10-5.30)
[2023-06-01] MEDS: diphenhydrAMINE 50 MG/ML SDV IVPUSH ONE (17:20)
[2023-06-01] MEDS: Ondansetron 4 MG/2 ML SDV IVPUSH ONE (17:20)
[2023-06-01 17:28] LABS: ALBUMIN 3.7 g/dl (3.4-5.0); ANION GAP 13.3 (5-15); BILIRUBIN TOTAL 0.3 mg/dL (0.2-1.0); BUN/CREATININE RATIO 8.5 (14-18); CALCIUM 9.2 mg/dL (8.5-10.1); CREATININE 1.3 mg/dL (0.55-1.02); EST CRCL DRUG DOSING (CG) 44.71 mL/min; POTASSIUM,K 3.3 mEq/L (3.5-5.1); PROTEIN TOTAL,TP 7.4 g/dl (6.4-8.2)
[2023-06-01] MEDS: Lactated Ringers 1,000 ML IV SCH (17:35)
[2023-06-01] MEDS: Sodium Chloride 0.9% 10 ML Syringe FLUSH PRN (17:36)
[2023-06-01] MEDS: cefTRIAXone 2 GM in Sodium Chloride 0.9% 100 ML IV ONE (17:48)
[2023-06-01] MEDS: Prochlorperazine 5 MG in Sodium Chloride 0.9% 50 ML IV ONE (19:52)
[2023-06-01 20:24] VITALS: BP 100/68; PULSE 77
== END 2023-06-01 20:10 | disposition home or self-care (01) ==
LOC: JD.ED 15:04
DX: E87.6 Hypokalemia (principal); H65.02 Acute serous otitis media, left ear; J01.90 Acute sinusitis, unspecified; I10 Essential (primary) hypertension; K21.9 Gastro-esophageal reflux disease without esophagitis; E11.9 Type 2 diabetes mellitus without complications; Z88.5 Allergy status to narcotic agent; Z91.040 Latex allergy status; Z79.899 Other long term (current) drug therapy; Z90.49 Acquired absence of other specified parts of digestive tract; Z86.16 Personal history of COVID-19
CPT/HCPCS: 36415; 70450; 80053; 85025; 96361; 96365; 96375; 99284; J0696; J0780; J1200; J2405; J3490; J7120

== ENCOUNTER 2024-02-19 19:07 | Emergency (ER) | payer BC ==
[2024-02-19 19:20] VITALS: BP 92/58; PULSE 81
[2024-02-19 19:29] LABS: EOSINOPHILS ABSOLUTE AUTO 0.1 K/mm3 (0.0-0.4); EOSINOPHILS PERCENT AUTO 1.8 % (0.0-6.0); HEMATOCRIT 38.1 % (37.0-47.0); HEMOGLOBIN 12.5 gm/dl (12.0-16.0); IMMATURE GRAN ABSOLUTE AUTO 0.01 K/mm3 (0.00-0.05); IMMATURE GRAN PERCENT AUTO 0.3 % (0.0-0.4); LYMPHOCYTES ABSOLUTE AUTO 2.3 K/mm3 (1.0-4.8); LYMPHOCYTES PERCENT AUTO 58.5 % (24.0-44.0); MEAN CORPUSCULAR HEMOGLOBIN 31.6 pg (28.0-32.0); MEAN CORPUSCULAR HGB CONC 32.8 g/dl (32.0-36.0); MEAN CORPUSCULAR VOLUME 96.5 fl (83.0-99.0); MEAN PLATELET VOLUME 9.1 fl (9.4-12.3); MONOCYTES ABSOLUTE AUTO 0.4 K/mm3 (0.0-0.8); NEUTROPHILS ABSOLUTE AUTO 1.2 K/mm3 (1.8-7.7); NEUTROPHILS PERCENT AUTO 29.4 % (41.0-71.0); PLATELET COUNT,PLT 257 K/mm3 (150-400); RED BLOOD CELL COUNT 3.95 M/mm3 (4.10-5.30)
[2024-02-19] MEDS: Ondansetron 4 MG/2 ML SDV IVPUSH ONE (19:43)
[2024-02-19] MEDS: Dextrose 5%-Lactated Ringers 1,000 ML IV SCH (19:43)
[2024-02-19] MEDS: levETIRAcetam 1,000 MG in Sodium Chloride 0.9% 100 ML IV ONE (19:45)
[2024-02-19 19:46] LABS: HEMOGLOBIN A1C 5.2 %
[2024-02-19 20:08] LABS: LACTIC ACID 1.7 mmol/L (0.4-2.0)
[2024-02-19 20:12] LABS: A/G RATIO 1.2 (1-2); ALBUMIN 3.7 g/dl (3.4-5.0); ANION GAP 12.4 (5-15); BILIRUBIN TOTAL 0.3 mg/dL (0.2-1.0); BUN/CREATININE RATIO 8.9 (14-18); CALCIUM 8.9 mg/dL (8.5-10.1); CREATININE 0.9 mg/dL (0.55-1.02); EST CRCL DRUG DOSING (CG) 58.49 mL/min; ETHANOL BLOOD MEDICAL 0.23 gm% (0.00); MAGNESIUM 2.1 mg/dL (1.8-2.4); POTASSIUM,K 3.4 mEq/L (3.5-5.1); PROTEIN TOTAL,TP 6.7 g/dl (6.4-8.2)
[2024-02-19] MEDS: Lidocaine 1% 10 ML MDV INJECT ONE (20:25)
[2024-02-19] MEDS: LORazepam 2 MG/ML SDV IVPUSH ONE (23:13)
[2024-02-20 00:41] LABS: APPEARANCE,URINE CLEAR (Clear); BILIRUBIN,URINE NEGATIVE (Negative); COLOR,URINE YELLOW (Yellow); GLUCOSE,URINE NEGATIVE (Negative); KETONES,URINE NEGATIVE (Negative); LEUKOCYTE ESTERASE,URINE NEGATIVE (Negative); NITRITE,URINE NEGATIVE (Negative); OCCULT BLOOD,URINE TRACE-LYSED (Negative); PH,URINE 6.5 (5.0-8.0); PROTEIN,URINE NEGATIVE (Negative); UROBILINOGEN,URINE 0.2 (0.2-1.0)
[2024-02-20 01:14] LABS: AMORPHOUS SEDIMENT,URINE FEW /hpf (NOT SEEN); BACTERIA,URINE FEW /hpf (FEW); EPITHELIAL CELLS,URINE NOT SEEN /hpf (0-5); MUCUS,URINE RARE /hpf (FEW); RBC,URINE 0-5 /hpf (0-5); WBC,URINE 0-5 /hpf (0-5)
== END 2024-02-20 05:38 | disposition home or self-care (01) ==
LOC: JD.ED 19:07
DX: S01.01XA Laceration without foreign body of scalp, initial encounter (principal); G40.409 Other generalized epilepsy and epileptic syndromes, not intractable, without status epilepticus; F10.920 Alcohol use, unspecified with intoxication, uncomplicated; I25.2 Old myocardial infarction; K21.9 Gastro-esophageal reflux disease without esophagitis; Z86.16 Personal history of COVID-19; Z90.49 Acquired absence of other specified parts of digestive tract; Z90.710 Acquired absence of both cervix and uterus; Z79.899 Other long term (current) drug therapy; Z88.5 Allergy status to narcotic agent; Z91.040 Latex allergy status; W19.XXXA Unspecified fall, initial encounter
CPT/HCPCS: 12001; 36415; 70450; 72125; 80053; 80307; 81001; 83036; 83605; 83735; 83880; 84484; 85025; 86140; 93005; 94762; 96361; 96365; 96375; 99285; J1953; J2060; J2405; J3490; J7121; 93010; 99284

== ENCOUNTER 2024-03-05 15:49 | Inpatient (IN) | payer BC ==
[2024-03-05] MEDS ORDERED: Sodium Chloride 0.9% 10 ML Syringe FLUSH PRN (16:17)
[2024-03-05 17:38] LABS: BASOPHILS ABSOLUTE AUTO 0.1 K/mm3 (0.0-0.2); BASOPHILS PERCENT AUTO 0.6 % (0.0-1.0); EOSINOPHILS PERCENT AUTO 0.1 % (0.0-6.0); HEMATOCRIT 47.1 % (37.0-47.0); IMMATURE GRAN ABSOLUTE AUTO 0.09 K/mm3 (0.00-0.05); IMMATURE GRAN PERCENT AUTO 0.7 % (0.0-0.4); LYMPHOCYTES ABSOLUTE AUTO 1.3 K/mm3 (1.0-4.8); LYMPHOCYTES PERCENT AUTO 10.6 % (24.0-44.0); MEAN CORPUSCULAR HEMOGLOBIN 31.4 pg (28.0-32.0); MEAN CORPUSCULAR HGB CONC 31.8 g/dl (32.0-36.0); MEAN CORPUSCULAR VOLUME 98.7 fl (83.0-99.0); MEAN PLATELET VOLUME 9.5 fl (9.4-12.3); MONOCYTES ABSOLUTE AUTO 0.7 K/mm3 (0.0-0.8); MONOCYTES PERCENT AUTO 5.8 % (0.0-8.0); NEUTROPHILS ABSOLUTE AUTO 9.9 K/mm3 (1.8-7.7); NEUTROPHILS PERCENT AUTO 82.2 % (41.0-71.0); PLATELET COUNT,PLT 256 K/mm3 (150-400); RED BLOOD CELL COUNT 4.77 M/mm3 (4.10-5.30); WHITE BLOOD CELL COUNT,WBC 12.04 K/mm3 (3.9-11.3)
[2024-03-05 18:12] LABS: LACTIC ACID 8.4 mmol/L (0.4-2.0)
[2024-03-05 18:18] LABS: A/G RATIO 1.1 (1-2); ALBUMIN 4.3 g/dl (3.4-5.0); ANION GAP 28.9 (5-15); BILIRUBIN TOTAL 0.5 mg/dL (0.2-1.0); CALCIUM 9.7 mg/dL (8.5-10.1); EST CRCL DRUG DOSING (CG) 59.89 mL/min; ETHANOL BLOOD MEDICAL 0.06 gm% (0.00); MAGNESIUM 1.5 mg/dL (1.8-2.4); POTASSIUM,K 4.9 mEq/L (3.5-5.1); PROTEIN TOTAL,TP 8.2 g/dl (6.4-8.2); TSH 1.339 uIU/mL (0.358-3.74)
[2024-03-05] MEDS ORDERED: LORazepam 2 MG/ML SDV IV PRN ×2 (19:35)
[2024-03-05] MEDS: LORazepam 1 MG Tab PO ONE (19:37)
[2024-03-05 19:39] LABS: INR 0.97; PROTHROMBIN TIME 10.3 SECONDS (9.7-12.0)
[2024-03-05 19:40] LABS: APPEARANCE,URINE CLEAR (Clear); BILIRUBIN,URINE NEGATIVE (Negative); COLOR,URINE YELLOW (Yellow); GLUCOSE,URINE NEGATIVE (Negative); KETONES,URINE 3+ (Negative); LEUKOCYTE ESTERASE,URINE NEGATIVE (Negative); NITRITE,URINE NEGATIVE (Negative); OCCULT BLOOD,URINE 2+ (Negative); PH,URINE 5.5 (5.0-8.0); PROTEIN,URINE 1+ (Negative); UROBILINOGEN,URINE 0.2 (0.2-1.0)
[2024-03-05 19:41] LABS: PTT,PARTIAL THROMBOPLSTIN TIME 22.2 SECONDS (21.7-31.4)
[2024-03-05] MEDS: Magnesium Sulfate/Water Premix 2 GM/50 ML BAG IV ONE (19:57)
[2024-03-05] MEDS: Sodium Chloride 0.9% 1,000 ML IV ONE (19:57)
[2024-03-05] MEDS: Sodium Chloride 0.9% 1,000 ML IV SCH (19:57)
[2024-03-05 20:08] LABS: BACTERIA,URINE FEW /hpf (FEW); MUCUS,URINE FEW /hpf (FEW); WBC,URINE 0-5 /hpf (0-5)
[2024-03-05 20:09] LABS: BARBITURATE SCREEN,URINE NEGATIVE (CUTOFF=200); BENZODIAZEPINES SCREEN,URINE NEGATIVE (CUTOFF=150); BUPRENORPHINE SCREEN,URINE NEGATIVE (CUTOFF=10); METHADONE SCREEN, URINE NEGATIVE (CUTOFF=200); METHAMPHETAMINES SCREEN, URINE NEGATIVE (CUTOFF=500); OXYCODONE SCREEN,URINE NEGATIVE (CUT0FF=100); THC SCREEN,URINE 20 NG/ML PRESUMPTIVE POSITIVE (CUTOFF=50)
[2024-03-05 20:11] LABS: AMPHETAMINES SCREEN, URINE NEGATIVE (CUTOFF=500)
[2024-03-05] MEDS: Topiramate 25 MG Tab PO SCH (21:45)
[2024-03-05] MEDS: levETIRAcetam 500 MG Tab PO SCH ×2 (21:51→22:23)
[2024-03-06 04:47] LABS: BASOPHILS PERCENT AUTO 0.6 % (0.0-1.0); EOSINOPHILS ABSOLUTE AUTO 0.1 K/mm3 (0.0-0.4); EOSINOPHILS PERCENT AUTO 0.8 % (0.0-6.0); HEMATOCRIT 37.4 % (37.0-47.0); HEMOGLOBIN 12.4 gm/dl (12.0-16.0); IMMATURE GRAN ABSOLUTE AUTO 0.03 K/mm3 (0.00-0.05); IMMATURE GRAN PERCENT AUTO 0.5 % (0.0-0.4); LYMPHOCYTES ABSOLUTE AUTO 2.5 K/mm3 (1.0-4.8); LYMPHOCYTES PERCENT AUTO 40.4 % (24.0-44.0); MEAN CORPUSCULAR HEMOGLOBIN 31.9 pg (28.0-32.0); MEAN CORPUSCULAR HGB CONC 33.2 g/dl (32.0-36.0); MEAN CORPUSCULAR VOLUME 96.1 fl (83.0-99.0); MEAN PLATELET VOLUME 8.8 fl (9.4-12.3); MONOCYTES ABSOLUTE AUTO 0.6 K/mm3 (0.0-0.8); MONOCYTES PERCENT AUTO 10.2 % (0.0-8.0); NEUTROPHILS ABSOLUTE AUTO 2.9 K/mm3 (1.8-7.7); NEUTROPHILS PERCENT AUTO 47.5 % (41.0-71.0); PLATELET COUNT,PLT 242 K/mm3 (150-400); RED BLOOD CELL COUNT 3.89 M/mm3 (4.10-5.30); WHITE BLOOD CELL COUNT,WBC 6.16 K/mm3 (3.9-11.3)
[2024-03-06 05:25] LABS: ALBUMIN 3.2 g/dl (3.4-5.0); ANION GAP 20.5 (5-15); BILIRUBIN TOTAL 0.7 mg/dL (0.2-1.0); CALCIUM 8.7 mg/dL (8.5-10.1); EST CRCL DRUG DOSING (CG) 59.89 mL/min; MAGNESIUM 1.9 mg/dL (1.8-2.4); PHOSPHORUS 3.8 mg/dL (2.6-4.7); POTASSIUM,K 4.5 mEq/L (3.5-5.1); PROTEIN TOTAL,TP 6.4 g/dl (6.4-8.2)
[2024-03-06] MEDS: LORazepam 2 MG/ML SDV IV ONE (07:25)
[2024-03-06] MEDS: LORazepam 1 MG Tab PO PRN (08:39)
[2024-03-06] MEDS: Acetaminophen 325 MG Tab PO PRN (08:42)
[2024-03-06] MEDS: Enoxaparin 40 MG/0.4 ML Syringe SUBCUT SCH (08:43)
[2024-03-06] MEDS: Ondansetron 4 MG/2 ML SDV IV PRN (08:47)
[2024-03-06] MEDS: Folic Acid 1 MG Tab PO SCH (12:53)
[2024-03-06] MEDS: Multivitamin Tab PO SCH (12:54)
[2024-03-06] MEDS: Thiamine 100 MG Tab PO SCH (12:54)
[2024-03-06 18:23] LABS: HEMOGLOBIN A1C 4.9 %
[2024-03-06] MEDS ORDERED: 50% Dextrose in Water 50 ML Syringe IVPUSH PRN (19:56)
[2024-03-07 04:42] LABS: BASOPHILS PERCENT AUTO 0.6 % (0.0-1.0); EOSINOPHILS ABSOLUTE AUTO 0.1 K/mm3 (0.0-0.4); EOSINOPHILS PERCENT AUTO 1.4 % (0.0-6.0); HEMATOCRIT 35.2 % (37.0-47.0); HEMOGLOBIN 11.6 gm/dl (12.0-16.0); IMMATURE GRAN ABSOLUTE AUTO 0.01 K/mm3 (0.00-0.05); IMMATURE GRAN PERCENT AUTO 0.3 % (0.0-0.4); LYMPHOCYTES ABSOLUTE AUTO 1.8 K/mm3 (1.0-4.8); LYMPHOCYTES PERCENT AUTO 51.3 % (24.0-44.0); MEAN CORPUSCULAR HEMOGLOBIN 31.4 pg (28.0-32.0); MEAN CORPUSCULAR VOLUME 95.4 fl (83.0-99.0); MONOCYTES ABSOLUTE AUTO 0.3 K/mm3 (0.0-0.8); MONOCYTES PERCENT AUTO 9.5 % (0.0-8.0); NEUTROPHILS ABSOLUTE AUTO 1.3 K/mm3 (1.8-7.7); NEUTROPHILS PERCENT AUTO 36.9 % (41.0-71.0); PLATELET COUNT,PLT 209 K/mm3 (150-400); RED BLOOD CELL COUNT 3.69 M/mm3 (4.10-5.30); WHITE BLOOD CELL COUNT,WBC 3.57 K/mm3 (3.9-11.3)
[2024-03-07 05:29] LABS: ANION GAP 13.6 (5-15); BILIRUBIN TOTAL 0.5 mg/dL (0.2-1.0); BUN/CREATININE RATIO 12.5 (14-18); CALCIUM 8.5 mg/dL (8.5-10.1); CREATININE 0.8 mg/dL (0.55-1.02); EST CRCL DRUG DOSING (CG) 74.86 mL/min; POTASSIUM,K 3.6 mEq/L (3.5-5.1); PROTEIN TOTAL,TP 5.9 g/dl (6.4-8.2)
[2024-03-07] MEDS: Insulin Lispro 100 Unit/ML 3 ML KwikPen SUBCUT SCH (08:00)
[2024-03-07] MEDS: levETIRAcetam 500 MG Tab PO SCH (09:30)
[2024-03-07 13:59] VITALS: BP 123/94
[2024-03-07 14:00] VITALS: PULSE 70
[2024-03-09 19:42] LABS: KEPPRA 22 ug/mL (10-40)
== END 2024-03-07 13:51 | disposition home or self-care (01) | DRG 775 ==
LOC: JD.ED 15:49 → JD.ICU 19:31
PROVIDERS: ADMIT Family Medicine; ATTEND Family Medicine
DX: F10.239 Alcohol dependence with withdrawal, unspecified (principal); G40.909 Epilepsy, unspecified, not intractable, without status epilepticus; K21.9 Gastro-esophageal reflux disease without esophagitis; E87.29 Other acidosis; E11.22 Type 2 diabetes mellitus with diabetic chronic kidney disease; N18.2 Chronic kidney disease, stage 2 (mild); Z88.8 Allergy status to other drugs, medicaments and biological substances; Z91.040 Latex allergy status; Z86.16 Personal history of COVID-19; Z90.49 Acquired absence of other specified parts of digestive tract; Z90.710 Acquired absence of both cervix and uterus; Z79.4 Long term (current) use of insulin; I25.2 Old myocardial infarction
CPT/HCPCS: 36415; 70450; 70450-26; 71045; 71045-26; 80053; 80177; 80306; 80307; 81001; 82550; 82947; 83036; 83605; 83690; 83735; 84100; 84443; 84484; 84702; 84703; 85025; 85610; 85652; 85730; 86140; 87040; 93005; 93010; 99284; 99285; A9270-GY; J1650; J2405; J3475; J7030

== ENCOUNTER 2024-08-30 08:56 | Emergency (ER) | payer BC ==
[2024-08-30] MEDS: Ondansetron 4 MG Tab.DIS PO ONE (10:59)
[2024-08-30] MEDS: Meclizine 25 MG Tab PO ONE (11:00)
[2024-08-30] MEDS: Amoxicillin/Clavulanate K 875-125 MG Tab PO ONE (11:00)
[2024-08-30] MEDS: Sodium Chloride 0.9% 1,000 ML IV ONE (11:01)
[2024-08-30 11:02] LABS: BASOPHILS PERCENT AUTO 0.4 % (0.0-1.0); HEMATOCRIT 40.8 % (37.0-47.0); IMMATURE GRAN ABSOLUTE AUTO 0.03 K/mm3 (0.00-0.05); IMMATURE GRAN PERCENT AUTO 0.3 % (0.0-0.4); LYMPHOCYTES ABSOLUTE AUTO 0.5 K/mm3 (1.0-4.8); LYMPHOCYTES PERCENT AUTO 4.9 % (24.0-44.0); MEAN CORPUSCULAR HEMOGLOBIN 31.8 pg (28.0-32.0); MEAN CORPUSCULAR HGB CONC 33.6 g/dl (32.0-36.0); MEAN CORPUSCULAR VOLUME 94.7 fl (83.0-99.0); MEAN PLATELET VOLUME 8.8 fl (9.4-12.3); MONOCYTES ABSOLUTE AUTO 0.7 K/mm3 (0.0-0.8); MONOCYTES PERCENT AUTO 6.5 % (0.0-8.0); NEUTROPHILS ABSOLUTE AUTO 8.8 K/mm3 (1.8-7.7); NEUTROPHILS PERCENT AUTO 87.9 % (41.0-71.0); PLATELET COUNT,PLT 197 K/mm3 (150-400); RED BLOOD CELL COUNT 4.31 M/mm3 (4.10-5.30); WHITE BLOOD CELL COUNT,WBC 10.04 K/mm3 (3.9-11.3)
[2024-08-30] MEDS: LORazepam 2 MG/ML SDV IVPUSH ONE (11:02)
[2024-08-30 11:03] LABS: HEMOGLOBIN 13.7 gm/dl (12.0-16.0)
[2024-08-30] MEDS: Sodium Chloride 0.9% 10 ML Syringe FLUSH PRN ×2 (11:03)
[2024-08-30] MEDS ORDERED: Sodium Chloride 0.9% 100 ML IV SCH (11:15)
[2024-08-30 11:26] LABS: ALBUMIN 3.7 g/dl (3.4-5.0); ANION GAP 23.8 (5-15); BILIRUBIN TOTAL 1.8 mg/dL (0.2-1.0); CALCIUM 9.8 mg/dL (8.5-10.1); EST CRCL DRUG DOSING (CG) 52.05 mL/min; POTASSIUM,K 3.8 mEq/L (3.5-5.1); PROTEIN TOTAL,TP 7.3 g/dl (6.4-8.2)
[2024-08-30] MEDS: Iopamidol 755 Mg/ML 100 ML Bottle IVPUSH ONE (12:29)
[2024-08-30] MEDS: Sodium Chloride 0.9% 10 ML Syringe FLUSH ONE (12:30)
[2024-08-30 20:13] VITALS: BP 125/82; PULSE 115
== END 2024-08-30 16:15 | disposition home or self-care (01) ==
LOC: JD.ED 08:56
DX: H66.91 Otitis media, unspecified, right ear (principal); R51.9 Headache, unspecified; R11.2 Nausea with vomiting, unspecified; R42 Dizziness and giddiness; E11.65 Type 2 diabetes mellitus with hyperglycemia; E66.9 Obesity, unspecified; Z91.040 Latex allergy status; Z88.8 Allergy status to other drugs, medicaments and biological substances; Z79.899 Other long term (current) drug therapy; Z86.16 Personal history of COVID-19; Z90.49 Acquired absence of other specified parts of digestive tract; Z68.23 Body mass index [BMI] 23.0-23.9, adult
CPT/HCPCS: 36415; 70450; 80053; 83735; 85025; 93005; 96361; 96374; 99284; A9270; J2060; J7030; 93010

== ENCOUNTER 2024-09-07 10:49 | Emergency (ER) | payer BC ==
[2024-09-07] MEDS: cefTRIAXone 1 GM, Lidocaine 1% 2.1 ML IM ONE (13:09)
[2024-09-07 13:58] VITALS: BP 114/72; PULSE 90
== END 2024-09-07 13:05 | disposition home or self-care (01) ==
LOC: JD.ED 10:49
DX: H65.91 Unspecified nonsuppurative otitis media, right ear (principal); H83.01 Labyrinthitis, right ear; I25.2 Old myocardial infarction; E11.9 Type 2 diabetes mellitus without complications; Z86.16 Personal history of COVID-19; Z90.49 Acquired absence of other specified parts of digestive tract; Z90.710 Acquired absence of both cervix and uterus; Z88.5 Allergy status to narcotic agent; Z91.040 Latex allergy status; Z79.899 Other long term (current) drug therapy
CPT/HCPCS: 96372; 99283; J0696; J2003